=== PATIENT | male | born 1965 | race Caucasian/White ===

== ENCOUNTER 2024-05-20 14:00 | Emergency (ER) | payer MEDICARE, SELFPAY ==
[2024-05-20 14:06] VITALS: BP 178/95; PULSE 67; TEMP 37; O2SAT 94; BMI 22.0
--- NOTE | 2024-05-20 14:20 | PC.NURSE ---
chronic back pain, reports needing surgery but has not had anything done. No DR at this time as pt is new to the area. Pt ambulated to ER rm 8 with no problem and PA at bedside for assessment.
--- NOTE | 2024-05-20 14:27 | ED.BACK1 ---
HPI HPI - Back Pain/Injury General Chief Complaint: Back Pain/Injury Stated Complaint: BACK SPAZMS Time Seen by Provider: 05/20/24 14:13 Source: patient and family () Mode of arrival: walk-in Limitations: no limitations History of Present Illness HPI Narrative: 58-year-old male presents to the emergency department with with complaint of lower back pain over the past 2-1/2 days. 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 Notes numbness going down his left leg, paresthesias in his right leg. States his right leg, do not work, secondary to the [place] Mccollum? disease. He has numbness and tingling in his arms as well from the [place] Mccollum?. He has appointment for follow-up, but pain intolerable and came in for further evaluation. Patient recently moved here from [place]. Denies any new or concerning symptoms, just his chronic pain being not controlled. Denies any loss of bowel or bladder control, fever, chills, IV drug use, saddle anesthesias. Quality:?as above Severity:?severe Timing:?as above, contant Context: Normal setting and activity? Modifying factors:?worse with palpation, movement Associated symptoms: as above Related Data Previous Rx's ?Medication ?Instructions ?Recorded hydrocodone 5 mg-acetaminophen 325 1 tab PO Q8H PRN pain 3 days #8 05/20/24 mg tablet tabs prednisone 20 mg tablet 40 mg (2 x 20 mg) PO DAILY 5 days 05/20/24 #10 tabs tizanidine 2 mg capsule 2 mg PO Q8H PRN muscle spasticity 05/20/24 #14 caps Allergies Allergy/AdvReac Type Severity Reaction Status Date / Time No Known Drug Allergies Allergy Verified 05/20/24 14:10 Opioid HPI Opioid Management Most Recent Opioid Data: No Data to Display Review of Systems ROS Narrative CONST: Denies fever, chills GI: Denies abd pain, nausea, loss of bowel control : Denies loss of bladder control, hematuria MS: + back pain, myalgias.? Denies arthralgia SKIN: Denies color change, swelling NEURO: + numbness, paresthesias, weakness. 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 No diaphoresis.?? HENT: normocephalic, atraumatic, CV: 2+ palpable DP pulses bilat GI: soft, nontender : no CVA tenderness MS: + spinous process and paraspinal muscle tenderness diffusely to the lower L-S region.? + tenderness over the SI joint.? There is no discoloration, edema, crepitus, instability, step off.? + weakness and sensory deficit noted to the RLE which is chronic and unchanged per patient. DF, PF, hallux DF strong 5/5 on the left. NEURO: sensory deficit, chronic noted to the right leg SKIN: no rash, erythema, warm, dry PSYCHIATRIC: normal mood, affect Constitutional Vital Signs, click to edit/add: Last Vital Signs Temp 98.6 F 05/20/24 14:06 Pulse 67 05/20/24 14:06 Resp 18 05/20/24 14:06 BP 178/95 H 05/20/24 14:06 Pulse Ox 94 L 05/20/24 14:06 O2 Del Method Room Air 05/20/24 14:06 Course Reevaluation(s) Reevaluation #1: On reevaluation, patient reports she is still having some pain, but it is tolerable at this point and he is comfortable with being discharged to home. Discussed with patient and results, plan, and disposition. Patient and are agreeable. Time: 15:39 Vital Signs Vital signs: Vital Signs Temperature 98.6 F 05/20/24 14:06 Pulse Rate 67 05/20/24 14:06 Respiratory Rate 18 05/20/24 14:06 Blood Pressure 178/95 H 05/20/24 14:06 Pulse Oximetry 94 L 05/20/24 14:06 Oxygen Delivery Method Room Air 05/20/24 14:06 Temperature 98.6 F 05/20/24 14:06 Pulse Rate 67 05/20/24 14:06 Respiratory Rate 18 05/20/24 14:06 Blood Pressure 178/95 H 05/20/24 14:06 Pulse Oximetry 94 L 05/20/24 14:06 Oxygen Delivery Method Room Air 05/20/24 14:06 MDM - Back Pain/Injury MDM Narrative Medical decision making narrative: This is a pleasant 58-year-old male who presents to the emergency department for evaluation of low back pain, numbness in his left leg. Has chronic numbness in both of his arms and his right leg secondary to [place] Mccollum? syndrome. States the pain he is experiences the same location and characteristic and the numbness is similar to chronic, but today reports that the symptoms are not controlled with home remedies. Denies any red flags, fevers, chills, loss of bowel or bladder control, saddle anesthesias, history of IV drug use. On arrival, afebrile, vital signs are stable Exam, nontoxic, uncomfortable-appearing patient in no distress. He has diffuse tenderness across the lower back, spinous process into the buttocks. Left dorsiflexion, plantarflexion, hallux dorsiflexion 5/5 strength. He has weakness in his right leg secondary to the given bradycardia which he says is not worse. 2+ palpable dorsalis pedal pulses are intact. There are sensory deficits noted to both legs, also chronic. Patient's pain was treated with IM Kenalog, morphine, oral Motrin, and tizanidine with overall improvement Favor low back pain, radiculopathy, exacerbation Cauda equina less likely based on history and physical exam. No loss of bowel or bladder control, no new weakness, saddle anesthesias Epidural abscess less likely based on history and physical. No loss of bowel or bladder control, fevers, history of IV drug use. Fracture less likely based on history and has no blunt trauma reported. History and Record Review Discussion with independent historian: OARRS reviewed from [place] Diagnostic testing considered but not performed: X-rays. No report of blunt trauma. Re-Evaluation See ED course Disposition ? The patient was discharged. Prescriptions sent to pharmacy: [facility], prednisone, tizanidine Plan: Patient will be discharged to home.? Condition at time of disposition: stable, improved.? Advised to follow up with referral provider, name and number placed on discharge paperwork. Advised to return for any worsening and/or development of new, concerning signs or symptoms PLEASE NOTE: Portions of the medical record may have been produced using electronic sign builder and may contain errors with respect to translation of words which may not have been identified prior to finalization of the chart. Medical Records Attestation: I reviewed the patient's medical records. Discharge Plan Discharge Chief Complaint: Back Pain/Injury Clinical Impression: Lumbar radiculopathy, History of Guillain-[place] syndrome Low back pain Qualifiers: Chronicity: acute Back pain laterality: bilateral Sciatica presence: with sciatica Sciatica laterality: sciatica laterality unspecified Qualified Code(s): M54.40 - Lumbago with sciatica, unspecified side Patient Disposition: Home, Self-Care Time of Disposition Decision: 15:34 Condition: Good Mode of Transportation: Private Vehicle Prescriptions / Home Meds: New hydrocodone-acetaminophen 5-325 mg tablet 1 tab PO Q8H PRN (Reason: pain) 3 Days Qty: 8 0RF tizanidine 2 mg capsule 2 mg PO Q8H PRN (Reason: muscle spasticity) Qty: 14 0RF prednisone 20 mg tablet 40 mg PO DAILY 5 Days Qty: 10 0RF Print Language: Luxembourgish Instructions: Acute Low Back Pain (ED), Lumbar Radiculopathy (ED) Referrals: Walter Perez DO [Physician] - 1 week (3 [facility] 350 ) Helen Aquino MD [Physician] - 1 week
[2024-05-20] MEDS: TIZANIDINE HCL 4 MG TABLET 2 MG PO (14:37)
[2024-05-20] MEDS: MORPHINE SULFATE 4 MG/ML VIAL IM (14:38)
[2024-05-20] MEDS: IBUPROFEN 600 MG TABLET PO (14:38)
[2024-05-20] MEDS: TRIAMCINOLONE ACETONIDE 40 MG/ML VIAL IM (14:38)
== END 2024-05-20 15:45 | disposition home or self-care (01) ==
PROVIDERS: Emergency Provider Emergency Medicine; PCP Nurse Practitioner
DX: M54.16 Radiculopathy, lumbar region (principal); G61.0 Guillain-Barre syndrome
CPT/HCPCS: 96372; 99284; J2270; J3301

== ENCOUNTER 2024-06-15 13:56 | Outpatient (OUT) | payer MEDICARE, SELFPAY ==
--- OUTSIDE RECORDS SUMMARY | 2024-06-15 14:23 | XMS_ITS | CCD ---
Author Organization [facility] Inform [facility] Care Team Providers Care Geomagnetician Name Role Phone Julia RAMIREZ, Marium Unavailable Joao Law MD Primary Care Provider [phone] Teo RAMIREZ, Niurka Unavailable NIURKA BRUCE Attending Unavailable MARIUM DUMONT Attending Unavailabl e Medications Current Medications Medication Drug Class(es) Dates Sig (Normalized) Sig (Original) acetaminophen 325 mg / HYDROcodone bitartrate 5 mg oral tablet (4 sources) Opioid Agonist Start: 01-29-2024 End: 02-28-2024 take 1 tablet by mouth once HYDROcodone-acetami nophen (Wolfforth) 5-325 MG tablet Indications: Retrolisthesis of vertebrae , Bulging lumbar disc Take 1 tablet by mouth every 12 (twelve) hours if needed for severe pain 60 tablet 01/29/2024 02/28/2024 Active amLODIPine 5 mg oral tablet (4 sources) Dihydropyridine Calcium Channel Maricel take 1 tablet by mouth once daily amLODIPine (Norvasc) 5 MG tablet Take 5 mg by mouth Daily Active ARIPiprazole 20 mg oral tablet (3 sources) Atypical Antipsychotic Start: 02-18-2024 End: 02-18-2024 take 1 tablet by mouth once daily ARIPiprazole (Abilify) 20 MG tablet Indications: Recurrent major depressive disorder, in partial remission (HCC) (CMS/HCC) Take 1 tablet (20 mg) by mouth Daily 30 tablet 1 02/18/2024 Active folic acid 1 mg oral tablet (3 sources) Start: 02-18-2024 End: 02-18-2024 take 1 tablet by mouth once daily folic acid (Folvite) 1 MG tablet Indications: Recurrent major depressive disorder, in partial remission (HCC) (CMS/HCC) Take 1 tablet (1 mg) by mouth Daily 30 tablet 1 02/18/2024 Active lisinopril 10 mg oral tablet (3 sources) Angiotensin Converting Enzyme Inhibitor Start: 02-18-2024 End: 02-18-2024 take 1 tablet by mouth once daily lisinopril 10 MG tablet Indications: Primary hypertension (CMS/HCC) Take 1 tablet (10 mg) by mouth Daily 30 tablet 1 02/18/2024 Active pantoprazole 40 mg delayed release oral tablet (3 sources) Proton Pump Inhibitor Start: 02-18-2024 End: 02-18-2024 take 1 tablet by mouth before mealtime pantoprazole (ProtoNix) 40 MG EC tablet Indications: Heartburn Take 1 tablet (40 mg) by mouth in the morning. Take before meals. Do not crush, chew, or split.. 30 tablet 1 02/18/2024 Active rosuvastatin calcium 10 mg oral tablet (3 sources) HMG-CoA Reductase Inhibitor Start: 02-18-2024 End: 02-18-2024 take 1 tablet by mouth once daily rosuvastatin (Crestor) 10 MG tablet Indications: Other hyperlipidemia (CMS/HCC) Take 1 tablet (10 mg) by mouth Daily 30 tablet 1 02/18/2024 Active traZODone hydrochloride 100 mg oral tablet (3 sources) Serotonin Reuptake Inhibitor Start: 02-18-2024 End: 02-18-2024 take 1 tablet by mouth at bedtime traZODone (Desyrel) 100 MG tablet Indications: Anxiety Take 1 tablet (100 mg) by mouth at bedtime 30 tablet 1 02/18/2024 Active 24 hr divalproex sodium 500 mg extended release oral tablet (3 sources) Mood Stabilizer, Anti-epileptic Agent Start: 02-19-2024 take 1 tablet by mouth once daily divalproex (Depakote ER) 500 MG 24 hr tablet Indications: Anxiety Take 1 tablet (500 mg) by mouth Daily Do not crush, chew, or split. 90 tablet 02/19/2024 Active End: 02-19-2024 take 1 tablet by mouth once daily divalproex (Depakote ER) 500 MG 24 hr tablet Take 500 mg by mouth Daily Do not crush, chew, or split. 02/19/2024 Discontinued (Reorder) Problems Problem Classification Problem Date Documented Da te Episodic/Chronic Acute myocardial infarction (4 sources) Myocardial infarction; Translations: [Acute myocardial infarction, unspecified] 01-28-2024 Chronic Anxiety disorders (6 sources) Anxiety; Translations: [Anxiety disorder, unspecified] 01-28-2024 Chronic Coronary atherosclerosis and other heart disease (4 sources) History of myocardial infarction; Translations: [Old myocardial infarction] Onset: 01-28-2024 01-28-2024 Chronic Disorders of lipid metabolism (5 sources) Hyperlipidemia; Translations: [Other hyperlipidemia] Onset: 01-28-2024 01-28-2024 Chronic Essential hypertension (5 sources) Hypertensive disorder; Translations: [Essential (primary) hypertension] 01-28-2024 Chronic Genitourinary symptoms and ill-defined conditions (8 sources) Dysuria; Translations: [Dysuria] Onset: 01-29-2024 01-29-2024 Episodic Mood disorders (5 sources) Depressive disorder; Translations: [Depression] 01-28-2024 Chronic Osteoarthritis (4 sources) Arthritis; Translations: [Unspecified osteoarthritis, unspecified site] 01-28-2024 Chronic Other acquired deformities (7 sources) Retrolisthesis; Translations: [Spondylolisthesis, site unspecified] Onset: 01-29-2024 01-29-2024 Episodic Other gastrointestinal disorders (1 source) Heartburn; Translations: [Heartburn] 02-18-2024 Episodic Other nervous system disorders (4 sources) 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; 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] Onset: 01-28-2024 01-28-2024 Chronic Other nervous system disorders (4 sources) Neuromyopathy; Translations: [Myoneural disorder, unspecified] 01-28-2024 Episodic Other screening for suspected conditions (not mental disorders or infectious disease) (6 sources) Patient encounter status; Translations: [Encounter for screening for malignant neoplasm of colon] Onset: 01-28-2024 01-28-2024 Episodic Rheumatoid arthritis and related disease (2 sources) Retrolisthesis 01-29-2024 Chronic Spondylosis; intervertebral disc disorders; other back problems (9 sources) Disorder of lumbar disc; Translations: [Bulging lumbar disc] Onset: 01-29-2024 01-29-2024 Chronic Unclassified (2 sources) Patient encounter status 01-29-2024 Results Test Name Value Interpretation Reference Range Facil ity Provider Letteron 04-14-2024 Provider Letter Provider Letter April 14, 2024 ROXY YAN [address] [place] [address] : 1965 Dear Roxy Yan, We have been trying to reach you with no success. It is important that you return our call regarding a referral your Primary Care Doctor sent to [facility], upon receiving this letter. Also, at the time of your call, please provide us with your current information. Thank you for your prompt attention to this matter. Sincerely, [facility] [address] [facility] Vital Signs Date Time Vital Sign Value Performing Clinician Patti garcia 01-28-2024 11:18-0500 Body height 162.6 cm Marium Dumont [employer] Work Phone: [facility] 01-28-2024 11:18-0500 Body mass index (BMI) [Ratio] 21.83 kg/m2 Marium Dumont [employer] Work Phone: [facility] 01-28-2024 11:18-0500 Body temperature 97.7 [degF] Marium Dumont [employer] Work Phone: [facility] 01-28-2024 11:18-0500 Body weight 57.7 kg Marium Dumont [employer] Work Phone: [facility] 01-28-2024 11:18-0500 Diastolic blood pressure 78 mm[Hg] Marium Dumont [employer] Work Phone: [facility] 01-28-2024 11:18-0500 Heart rate 83 /min Marium Dumont [employer] Work Phone: [facility] 01-28-2024 11:18-0500 Respiratory rate 16 /min Marium Dumont [employer] Work Phone: [facility] 01-28-2024 11:18-0500 SaO2% (BldA) [Mass fraction] 97 % Marium Dumont [employer] Work Phone: [facility] 01-28-2024 11:18-0500 Systolic blood pressure 140 mm[Hg] Marium Nicholaszpatrick [employer]UM [employer]ARIAN Work Phone: [facility] Healthcare Encounters Encounter Date Encounter Type Care Provider Facility Start: 06-02-2024 End: 06-02-2024 ambulatory NIURKA BRUCE Not Available Start: 02-19-2024 End: 02-19-2024 Refill Crissy Slaughter MA [facility] Comment on above: Anxiety (Primary Dx) Start: 02-18-2024 End: 02-18-2024 Refill Crissy Slaughter MA [facility] Comment on above: Recurrent major depr essive disorder, in partial remission (HCC) (CMS/HCC) (Primary Dx); Retrolisthesis of vertebrae; Bulging lumbar disc; Anxiety; Other hyperlipidemia (CMS/HCC); Primary hypertension (CMS/HCC); Heartburn Start: 01-30-2024 ambulatory Facility:[facility] Start: 01-28-2024 End: 01-28-2024 Bamboo flowsheet Marium Julia [employer]IAN Work Phone: [facility] Start: 01-28-2024 End: 01-28-2024 Bamboo flowsheet Marium Dumont [employer]IAN Work Phone: [facility] Start: 01-28-2024 End: 01-28-2024 Initial preventive medicine new patient 40-64yrs Marium Dumont [employer]IAN Work Phone: [facility] Comment on above: Wellness examination (Primary Dx); Screening for malignant neoplasm of colon; Retrolisthesis of vertebrae; Bulging lumbar disc; Dysuria Start: 01-28-2024 End: 01-28-2024 Patient encounter status Marium Julia [employer]IAN Work Phone: [facility] Start: 01-28-2024 End: 01-28-2024 ambulatory MARIMU DUMONT Not Available Plan of Treatment Date Care Activity Detail Author Start: 01-27-2025 Medicare Annual Well ness (AWV) Medicare Annual Wellness (AWV) [facility] Start: 02-25-2024 End: 02-25-2024 Patient encounter procedure 02/25/2024 10:30 AM EST Office Visit [facility] [address] [place] [address] Marium Dumont, [employer]IAN [address] [place] [address] [facility] Start: 01-28-2024 End: 01-27-2025 CBC W Auto Differential panel - Blood CBC and differential Lab Routine Wellness examination Expected: 01/28/2024 (Approximate), Expires: 01/27/2025 [facility] Comment on above: Expected: 01/28/2024 (Approximate), Expires: 01/27/2025 Start: 01-28-2024 End: 01-27-2025 Comprehensive metabolic 2000 panel - Serum or Plasma Comprehensive metabolic panel Lab Routine Wellness examination Expected: 01/28/2024 (Approximate), Expires: 01/27/2025 [facility] Comment on above: Expected: 01/28/2024 (Approximate), Expires: 01/27/2025 Start: 01-28-2024 End: 01-27-2025 Hemoglobin A1c/Hemoglobin.total in Blood Hemoglobin A1c Lab Routine Wellness examination Expected: 01/28/2024 (Approximate), Expires: 01/27/2025 [facility] Comment on above: Expected: 01/28/2024 (Approximate), Expires: 01/27/2025 Start: 01-28-2024 End: 01-27-2025 Lipid 1996 panel - Serum or Plasma Lipid panel Lab Routine Wellness examination Expected: 01/28/2024 (Approximate), Expires: 01/27/2025 [facility] Comment on above: Expected: 01/28/2024 (Approximate), Expires: 01/27/2025 Start: 01-28-2024 End: 01-27-2025 TSH W/REFLEX TO FT4 TSH W/REFLEX TO FT4 Lab Routine Wellness examination Expected: 01/28/2024 (Approximate), Expires: 01/27/2025 [facility] Work Phone: Comment on above: Expected: 01/28/2024 (Approximate), Expires: 01/27/2025 Start: 01-28-2024 End: 01-28-2024 Patient encounter procedure 01/28/2024 11:30 AM EST Office Visit [facility] [address] [place] [address] Marium Dumont NP [address] [facility] [place] [address] Arrived [facility] Comment on above: Arrived Start: 11-10-2023 Influenza vaccination Influenza Vacc ine (#1) [facility] Start: 1965 Screening for malign ant neoplasm of colon [facility] Payers Date Payer Category Payer Medicare (Managed Care) [employer] [id number] 2023 Private Health Insurance [facility] [id number] 2023 Unknown [id number] 1965 Unknown [id number] 1965 Unknown 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 No [facility] Are you now , , , , never or living with a partner? Living with partner [facility] How often to you hav e a drink containing alcohol? 2-4 times a month [facility] How many standard dr inks containing alcohol do you have on a typical day? 3 or 4 [facility] How often do you hav e 6 or more drinks on 1 occasion? Less than monthly [facility] How hard is it for y ou to pay for the very basics like food, housing, medical care, and heating Somewhat hard [facility] Do you feel stress - tense, restless, nervous, or anxious, or unable to sleep at night because your mind is troubled all the time - these days [OSQ] Very much [facility] (I/We) worried whemoy er (my/our) food would run out before (I/we) got money to buy more. Sometimes true [facility] In the past 12 month s, was there a time when you were not able to pay the mortgage or rent on time? Yes [facility] Start: 1965 Sex assigned at Not on file [facility] Start: 01-28-2024 Tobacco smoking status NHIS Smokes t obacco daily [facility] History of tobacco use Cigarette Smoker [facility] Start: 01-28-2024 Tobacco use and exposure Smoke less tobacco non-user [facility] Start: 01-28-2024 Alcoholic beverage intake Curr ent drinker of alcohol (finding) [facility] Start: 01-28-2024 Tobacco Comment Started smokin g when i was 17 [facility] Note 02-19-2024 Telephone Encounter - Crissy Slaughter MA - 02/19/2024 10:00 AM EST Note Date & Type Note Facility 02-19-2024 Miscellaneous Notes Formattin g of this note might be different from the original. He is taking it for depression. documented in this encounter [facility] Telephone encounter Note 02-19-2024 Telephone Encounter - Crissy Slaughter MA - 02/19/2024 10:00 AM EST Note Date & Type Note Facility 02-19-2024 Telephone encount er Note He is taking it for depression. [facility] Telephone encounter Note 02-18-2024 Telephone Encounter - Crissy Slaughter MA - 02/18/2024 11:56 AM EST Note Date & Type Note Facility 02-18-2024 Telephone encount er Note 01/28/2024 02/25/2024 [facility] Note 02-18-2024 Telephone Encounter - Crissy Slaughter MA - 02/18/2024 11:56 AM EST Note Date & Type Note Facility 02-18-2024 Miscellaneous Notes Formattin g of this note might be different from the original. 01/28/2024 02/25/2024 documented in this encounter [facility] History of Present illness Narrative 01-29-2024 Marium Dumont, JAMES - 01/29/2024 5:34 PM Santy Dumont, JAMES - 01/29/2024 5:34 PM Santy Dumont, JAMES - 01/29/2024 5:34 PM Santy Dumont, JAMES - 01/28/2024 11:30 AM EST Note Date & Type Note Facility 01-29-2024 History of Presen t illness Narrative Associated Problem(s): Wellness examination I have reviewed Ht/Wt/BMI, I have reviewed recommended vaccines for patient's age, as well as all recommended screenings I have reviewed available care everywhere notes as well. I have recommended eating a balanced diet, as well as activity as chronic conditions allow It is recommended that the patient have a yearly eye exam, as well as twice a year dental exams Fu in this office for wellness on a yearly basis Diet: Eat three meals per day. Breakfast, lunch, and dinner. Avoid snacking. Avoid eating after 5/6 pm. Daily protein GOAL 35% of your intake; 30g per meal. Daily calorie GOAL 1,800-2,000 per day. Consider tracking your food intake on MyFtinessPal or LoseIt Water: Increase water intake; GOAL 64-80oz of water per day. Exercise: Increase activity. GOAL 30 minutes, 5 days per week. START SLOW. Start with 5 minutes, 5 days per week. Then increase to 10 days, 5 days per week. Continue to increase until you reach the goal. Increase steps; GOAL 10,000 steps per day. Be sure to get adequate sleep; GOAL 6-8 hours of sleep per night. Associated Problem(s): Dysuria Difficulty with urination, difficulty with urinary flow X1 month Denies blood in urine Admits foul odor. UA in office negative. Refer urology Associated Problem(s): Bulging lumbar disc Has MRI report from [place], has retrolithesis on L5 Dessication at L2-L3 Mild disc buldge @ L4-L5 Was referred to neurosurgeon in [place], but moved prior to appointment. Would like referral to neurosurgeon here. Pt has RX from provider in [place] for hydrocodone-acetaminophen 5-325mg one tablet PO Q12H PRN severe Pain. RX was unable to be filled in [place]. Will fill for ONE month only. Referral sent to neurosurgery. Images from the original note were not included. Subjective Patient ID: Roxy Yan Jr. is a 58 y.o. male who presents for Establish Care. Back Pain This is a chronic problem. The current episode started more than 1 year ago. The problem occurs constantly. The problem has been rapidly worsening since onset. The pain is present in the gluteal. The quality of the pain is described as aching, burning, cramping, shooting and stabbing. The pain radiates to the left foot, left knee, left thigh, right foot, right knee and right thigh. The pain is at a severity of 10/10. The pain is The same all the time. The symptoms are aggravated by bending, coughing, position, lying down, sitting, standing and twisting. Stiffness is present All day. Associated symptoms include dysuria, leg pain, numbness, paresis, paresthesias and tingling. Pertinent negatives include no abdominal pain, chest pain, fever, headaches or weakness. Risk factors include recent trauma. Here today to establish care, moved here from [place]. Does not know dosing of any ,medications. Advised pt to call office with medication dosage and instructions so they can be entered correctly. Wellness labs done in November 2023 in [place]. Was seeing Quality Assurance Director in [place] as well- will request records Has MRI report from [place], has retrolithesis on L5 Dessication at L2-L3 Mild disc buldge @ L4-L5 Was referred to neurosurgeon in [place], but moved prior to appointment. Would like referral to neurosurgeon here. Pt has RX from provider in [place] for hydrocodone-acetaminophen 5-325mg one tablet PO Q12H PRN severe Pain. RX was unable to be filled in [place]. Will fill for ONE month only. Referral sent to neurosurgery. Difficulty with urination, difficulty with urinary flow X1 month Denies blood in urine Admits foul odor. UA in office negative. Refer urology Current 2 ppd smoker since age 17. [facility] Reports he has a 20 pound weight loss since November. Review of Systems Constitutional: Negative for activity change, appetite change, chills, diaphoresis, fatigue, fever and unexpected weight change. HENT: Negative for congestion, ear pain, rhinorrhea, sinus pressure, sinus pain, sneezing, sore throat, trouble swallowing and voice change. Eyes: Negative for visual disturbance. Respiratory: Negative for cough, chest tightness, shortness of breath and wheezing. Cardiovascular: Negative for chest pain, palpitations and leg swelling. Gastrointestinal: Negative for abdominal distention, abdominal pain, blood in stool, constipation, diarrhea and vomiting. Genitourinary: Positive for dysuria. Negative for decreased urine volume, flank pain, frequency, hematuria and urgency. Musculoskeletal: Positive for back pain. Negative for arthralgias, gait problem, joint swelling and myalgias. Skin: Negative for rash. Neurological: Positive for tingling, numbness and paresthesias. Negative for dizziness, tremors, syncope, weakness, light-headedness and headaches. Psychiatric/Behavioral: Positive for sleep disturbance. Negative for decreased concentration and suicidal ideas. The patient is nervous/anxious. Hematological: Does not bruise/bleed easily. Endocrine: Negative for cold intolerance, heat intolerance, polydipsia, polyphagia and polyuria. Objective Physical Exam Vitals reviewed. Constitutional: Appearance: Normal appearance. HENT: Head: Normocephalic and atraumatic. Right Ear: Tympanic membrane normal. Left Ear: Tympanic membrane normal. Nose: Nose normal. Mouth/Throat: Mouth: Mucous membranes are moist. Pharynx: Oropharynx is clear. Eyes: Pupils: Pupils are equal, round, and reactive to light. Cardiovascular: Rate and Rhythm: Normal rate and regular rhythm. Pulses: Normal pulses. Heart sounds: Normal heart sounds. Pulmonary: Effort: Pulmonary effort is normal. Breath sounds: Normal breath sounds. Abdominal: General: Abdomen is flat. Bowel sounds are normal. Palpations: Abdomen is soft. Musculoskeletal: General: Normal range of motion. Cervical back: Normal range of motion. Skin: General: Skin is warm and dry. Capillary Refill: Capillary refill takes less than 2 seconds. Neurological: General: No focal deficit present. Mental Status: He is alert and oriented to person, place, and time. Motor: Weakness present. Gait: Gait abnormal. Psychiatric: Mood and Affect: Mood normal. Behavior: Behavior normal. Assessment/Plan Problem List Items Addressed This Visit Screening for malignant neoplasm of colon Relevant Orders Ambulatory referral to Gastroenterology Wellness examination - Primary I have reviewed Ht/Wt/BMI, I have reviewed recommended vaccines for patient's age, as well as all recommended screenings I have reviewed available care everywhere notes as well. I have recommended eating a balanced diet, as well as activity as chronic conditions allow It is recommended that the patient have a yearly eye exam, as well as twice a year dental exams Fu in this office for wellness on a yearly basis Diet: Eat three meals per day. Breakfast, lunch, and dinner. Avoid snacking. Avoid eating after 5/6 pm. Daily protein GOAL 35% of your intake; 30g per meal. Daily calorie GOAL 1,800-2,000 per day. Consider tracking your food intake on MyFtinessPal or LoseIt Water: Increase water intake; GOAL 64-80oz of water per day. Exercise: Increase activity. GOAL 30 minutes, 5 days per week. START SLOW. Start with 5 minutes, 5 days per week. Then increase to 10 days, 5 days per week. Continue to increase until you reach the goal. Increase steps; GOAL 10,000 steps per day. Be sure to get adequate sleep; GOAL 6-8 hours of sleep per night. Relevant Orders TSH W/REFLEX TO FT4 Lipid panel Hemoglobin A1c Comprehensive metabolic panel CBC and differential Retrolisthesis of vertebrae Relevant Medications HYDROcodone-acetaminophen (Wolff[place]) 5-325 MG tablet Other Relevant Orders Ambulatory referral to Neurosurgery Bulging lumbar disc Has MRI report from [place], has retrolithesis on L5 Dessication at L2-L3 Mild disc buldge @ L4-L5 Was referred to neurosurgeon in [place], but moved prior to appointment. Would like referral to neurosurgeon here. Pt has RX from provider in [place] for hydrocodone-acetaminophen 5-325mg one tablet PO Q12H PRN severe Pain. RX was unable to be filled in [place]. Will fill for ONE month only. Referral sent to neurosurgery. Relevant Medications HYDROcodone-acetaminophen (Wolfforth) 5-325 MG tablet Other Relevant Orders Ambulatory referral to Neurosurgery Dysuria Difficulty with urination, difficulty with urinary flow X1 month Denies blood in urine Admits foul odor. UA in office negative. Refer urology Relevant Orders Ambulatory referral to Urology documented in this encounter [facility] Instructions 01-28-2024 Patient Instructions Note Date & Type Note Facility 01-28-2024 Instructions Marium Dumont NP - 01/28/2024 11:30 AM EST FASTING labs ordered. Nothing to eat or drink for 12 hours prior to blood draw. Water and black coffee ok. Referral sent to Dr. [facility] they will call you. If you don't hear from them in 2 weeks, call my office! Please call office with current medications, dosing, and frequency. documented in this encounter [facility] Evaluation note Note Date & Type Note Facility Evaluation note Diagnosis Wellness examination- Primary Screening for malignant neoplasm of colon Retrolisthesis of vertebrae Bulging lumbar disc Dysuria documented in this encounter [facility] Evaluation note Note Date & Type Note Facility Evaluation note Diagnosis Wellness examination- Primary Screening for malignant neoplasm of colon Retrolisthesis of vertebrae Bulging lumbar disc Dysuria Recurrent major depressive disorder, in partial remission (HCC) ([facility])- Primary Retrolisthesis of vertebrae Bulging lumbar disc Anxiety Anxiety state, unspecified Other hyperlipidemia ([facility]CC) Primary hypertension ([facility]) Unspecified essential hypertension Heartburn documented in this encounter [facility] Evaluation note Note Date & Type Note Facility Evaluation note Diagnosis Wellness examination- Primary Screening for malignant neoplasm of colon Retrolisthesis of vertebrae Bulging lumbar disc Dysuria Anxiety- Primary Anxiety state, unspecified documented in this encounter [facility] Summary Purpose Family History No Family History Records FoundNo Family History Records Found Advance Directives No Advanced Directives Records FoundNo Advanced Directives Records Found Additional Source Comments Care Teams (unrecognized sec tion and content) Geomagnetician Relationship Specialty Start Date End Date Joao Law MD [address] [place] [phone] PCP - General Family Medicine 01/09/24 Niurka Bruce NP [address] [place] [address] PCP - [facility] 12/10/23 01/09/88 Marium Dumont NP [address] [place] [address] Nurse Practitioner Family Medicine 12/11/23 Geomagnetician Relationship Specialty Start Date End Date Joao Law MD [address] [place] [phone] PCP - General Family Medicine 01/09/24 Niurka Bruce NP [address] [place] [phone] [facility] 12/10/23 01/09/88 Marimu Dumont NP [address] [place] [address] Nurse Practitioner Family Medicine 12/11/23 Geomagnetician Relationship Specialty Start Date End Date Joao Law MD [address] [place] [phone] PCP - General Family Medicine 01/09/24 Niurka Bruce NP [address] [place] [address] PCP - [facility] 12/10/23 01/09/88 Marium Dumont NP [address] [place] [address] Nurse Practitioner Family Medicine 12/11/23 Geomagnetician Relationship Specialty Start Date End Date Joao Law MD [address] [place] [address] PCP - General Family Medicine 01/09/24 Niurka Bruce NP [address] [place] [address] [facility] 12/10/23 01/09/88 Marium Dumont NP [address] [place] [address] Nurse Practitioner Family Medicine 12/11/23 Reason for Visit (unrecogniz ed section and content) Reason Comments Establish Care Reason Onset Date Comments Med Refill 02/18/2024 Reason Onset Date Comments Med Refill 02/19/2024 (unrecognized sect ion and content) No Status Records FoundNo Status Records Found INFORMATION SOURCE (unrecogn ized section and content) DATE CREATED AUTHOR 04/16/2024 Jose Cornell [facility] DATE CREATED AUTHOR AUTHOR'S ORGANIZ ATION 06/03/2024 [facility] FOR RECORDS PERTAINING TO PATIENTS WHO ARE OR HAVE BEEN ENROLLED IN A CHEMICAL DEPENDENCY/SUBSTANCEABUSE PROGRAM, SOME INFORMATION MAY BE OMITTED. This clinical summary was aggregated from multiple sources. Caution should be exercised in using it in the provision of clinical care. This summary normalizes information from multiple sources, and as a consequence, information in this document may materially change the coding, format and clinical context of patient data. In addition, data may be omitted in some cases. CLINICAL DECISIONS SHOULD BE BASED ON THE PRIMARY CLINICAL RECORDS. [employer] [facility]. provides no warranty or guarantee of the accuracy or completeness of information in this document.
--- NOTE | 2024-06-15 15:23 | PM.CN ---
Consult Note: HPI Data of Consult Patient: new to practice Consult date: 06/15/24 Requesting Physician: Vinod Gray MD Primary Care Provider: Niurka Bruce NP Consult Narrative Reason for consult: lumbar stenosis with neurogenic claudication Narrative: 58yom who presents for evaluation. longstanding history of low back pain with radiation into left lower extremity. also has history of guillain barre. lumbar imaging reviewed, significant for disc herniation with resultant stenosis at l4-5, l5-s1. has engaged in a series of provider directed home exercises >6 weeks, without benefit. uses norco, which helps some. denies adverse med side effects. 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) Chronic back pain ?M54.9 - Dorsalgia, unspecified (ICD-10) ?G89.29 - Other chronic pain (ICD-10) Social History Little interest or pleasure in doing things: not at all Feeling down, depressed, or hopeless: not at all Meds Home Medications and Allergies Home Medications ?Medication ?Instructions ?Recorded ?Confirmed ?Type hydrocodone 5 mg-acetaminophen 325 1 tab PO Q8H PRN pain 3 days #8 05/20/24 Rx mg tablet tabs prednisone 20 mg tablet 40 mg (2 x 20 mg) PO DAILY 5 days 05/20/24 Rx #10 tabs tizanidine 2 mg capsule 2 mg PO Q8H PRN muscle spasticity 05/20/24 Rx #14 caps gabapentin 300 mg capsule 300 mg PO TID #90 caps 06/15/24 Rx Allergies Allergy/AdvReac Type Severity Reaction Status Date / Time No Known Drug Allergies Allergy Verified 05/20/24 14:10 Exam Narrative Exam Narrative: Psych-alert and oriented x 3. Attentive and appropriate, constitutionally normal, displays normal mood and affect per situation. There are no obvious deficits in memory, reasoning, or intellect.? Skin-no obvious rashes, bruising, erythema noted to the patient's area of pain.? Extremities- extremities are warm with minimal edema and palpable pulses. Lumbar-tenderness to palpation noted in the lumbar spine and paraspinal musculature. Pain is elicited with flexion, extension, and lateral rotation of the lumbar spine. Range of motion is diminished with these motions. Facet loading maneuvers are positive.? Strength-noted to be unremarkable with the exception of decreased strength rated at 4 out of 5 in left quadriceps femoris, anterior tibialis. Sensory-no notable sensory deficits in the bilateral lower extremities to touch or pinprick in all dermatomal distributions with the exception to decreased sensation to the left L4, 5 dermatomal distribution Coordination remains intact.? Gait remains non-antalgic. Assessment and Plan Assessment and Plan (1) Lumbar stenosis with neurogenic claudication: (2) Lumbar radiculopathy: Plan 58yom who presents for evaluation. failed conservative measures, as noted. imaging reviewed, as noted. given symptoms and imaging, prudent to attempt left l4-5, l5-s1 tfesi under fluoroscopic guidance. he is in agreement. meds reviewed, ok to refill his norco and trial gabapentin 300mg tid. follow up after procedure.
== END 2024-06-15 13:57 | disposition home or self-care (01) ==
PROVIDERS: PCP Nurse Practitioner; Visit Provider Anesthesiology
DX: M48.062 Spinal stenosis, lumbar region with neurogenic claudication (principal); M54.16 Radiculopathy, lumbar region
CPT/HCPCS: G0463

== ENCOUNTER 2024-07-27 08:22 | Day surgery (SDC) | payer MEDICARE, SELFPAY ==
[2024-07-27 08:58] VITALS: BP 155/100; PULSE 79; TEMP 36.1; O2SAT 98
[2024-07-27 09:43] VITALS: BP 178/88; BP 179/90; PULSE 70; PULSE 74; O2SAT 97; O2SAT 98
[2024-07-27] MEDS: LIDOCAINE HCL 2% 400 MG/20 ML MDV INJ (09:47)
[2024-07-27] MEDS: IOHEXOL 240 MG/ML - 10 ML VIAL 24 MG INJ (09:47)
[2024-07-27] MEDS: BUPIVACAINE HCL 0.25% PF 25 MG/10 ML VIAL INJ (09:47)
[2024-07-27] MEDS: METHYLPREDNISOLONE ACETATE 80 MG/ML VIAL INJ (09:47)
[2024-07-27] MEDS: 0.9 % SODIUM CHLORIDE 10 ML SYRINGE - SALINE FLUSH INJ (09:47)
--- NOTE | 2024-07-27 09:47 | P.ON_ITS ---
Date of procedure: 07/27/24 Pre-op diagnosis: Pain due to lumbar stenosis with neurogenic claudication Post-op diagnosis: same as pre-op Procedure: Procedure: Left L4-5, L5-S1 transforaminal epidural steroid injection Medications: Bupivacaine 0.25% 2cc, lidocaine 2% 1cc, depomedrol 80mg The patient was seen and examined in the preoperative holding area.? Informed consent was obtained and placed on the chart.? Patient was brought to the medical procedure unit and placed in the prone position where a timeout was completed verifying the correct patient, procedure site, position, and planned special equipment using sterile aseptic technique.? Under direct fluoroscopic visualization a 25-gauge Quincke tipped spinal needle was advanced to the designated neural foramen where contrast dye was injected to show adequate spread.? The needle was inserted at level left L4-5. There was no evidence of vascular or adverse uptake.? Epidural spread was appreciated.? The above- mentioned injectate was then placed in a 1.5 mL aliquot preceded by negative aspiration.? The needle was removed. The needle was inserted and the procedure repeated at level left L5-S1.? The surgery site was covered.? Patient was taken to the postprocedural recovery area and monitored for an appropriate length of time before found suitable for discharge in the accompaniment of a responsible adult. Anesthesia: Local Surgeon: Vinod Gray Pathology: none sent Condition: stable Disposition: no change
== END 2024-07-27 09:52 | disposition home or self-care (01) ==
LOC: SURGOUT 08:22
PROVIDERS: PCP Nurse Practitioner; Visit Provider Anesthesiology
DX: M48.062 Spinal stenosis, lumbar region with neurogenic claudication (principal)
CPT/HCPCS: 64483; 64484; J0665; J1010; Q9966

== ENCOUNTER 2024-08-06 09:58 | Outpatient (OUT) | payer MEDICARE, SELFPAY ==
--- OUTSIDE RECORDS SUMMARY | 2024-07-28 13:00 | XMS_ITS | Encounter Summary ---
Author Organization [facility] Address [address] [place] [address] Care Team Providers Care Umbrella Tipper Hand Name Role Phone Marium Dumont ENROBER TENDER Unavailable [phone] Joao Law MD Primary Care Provider [phone] Niurka Bruce ENROBER TENDER Unavailable [phone] Reason for Referral * Consultation (Routine) - Authorized Specialty Diagnoses / Procedures Referred By Diogo arroyo Referred To Contact Orthopaedic Surgery Diagnoses Chronic midline low back pain, unspecified whether sciatica present Degeneration of intervertebral disc of lumbar region with discogenic back pain and lower extremity pain Retrolisthesis of vertebrae Niurka Bruce NP [address] [place] [address] Phone: tel: fax: Joni Thompson MD [address] [place] [address] Phone: tel: fax: Referral ID Status Reason Start Date Expiration Date Visits Requested Visits Authorized [id number] Authorized Specialty Services Required 07/28/2024 01/24/2025 1 1 Reason for Visit * Reason Comments Follow-up Encounter Details Date Type Department Care Team ([facility] Contact Info) Description 07/28/2024 1:00 PM EDT [facility] [address] [place] [address] Niurka Bruce, JAMES [address] [place] [address] Primary hypertension (CMS/HCC) (Primary Dx); Pulmonary emphysema, unspecified emphysema type (CMS/HCC); Cigarette nicotine dependence without complication; Mild episode of recurrent major depressive disorder (HCC) (CMS/HCC); Mixed hyperlipidemia (CMS/HCC); Chronic midline low back pain, unspecified whether sciatica present; Degeneration of intervertebral disc of lumbar region with discogenic back pain and lower extremity pain; Retrolisthesis of vertebrae Social History Tobacco Use Types Packs/Day Years Used Date Smoking Tobacco: Every Day Cigarettes 1.5 45 Smokeless Tobacco: Never Comments:Started smoking whe n i was 17 Alcohol Use Standard Drinks/Week Comments Yes 4 (1 standard drink = 0.6 oz pur e alcohol) B1300 Health Literacy Answer Date Recor ded How often do you need to hav e someone help you when you read instructions, pamphlets, or other written material from your doctor or pharmacy? Never 01/20/2024 Social Connection and Isolat ion Panel [NHANES] Answer Date Recorded In a typical week, how many times do you talk on the phone with family, friends, or neighbors? More than three times a week 01/20/2024 How often do you get togethe r with friends or relatives? More than three times a week 01/20/2024 How often do you attend chur ch or druze services? Never 01/20/2024 Do you belong to any clubs o r organizations such as yazdanism groups, unions, fraternal or athletic groups, or school groups? No 01/20/2024 How often do you attend meet ings of the clubs or organizations you belong to? Never 01/20/2024 Are you , , di vorced, , never , or living with a partner? Living with partner 01/20/2024 AUDIT-C Answer Date Recorded Q1: How often do you have a drink containing alc ohol? 2-4 times a month 01/20/2024 Q2: How many drinks containi ng alcohol do you have on a typical day when you are drinking? 3 or 4 01/20/2024 Q3: How often do you have si x or more drinks on one occasion? Less than monthly 01/20/2024 Overall Financial Resource Strain (CARDIA) Answe r Date Recorded How hard is it for you to pa y for the very basics like food, housing, medical care, and heating? Somewhat hard 01/20/2024 [facility] - Occupational Stress Questionnaire Answer Date Recorded Do you feel stress - tense, restless, nervous, or anxious, or unable to sleep at night because your mind is troubled all the time - these days? Very much 01/20/2024 Exercise Vital Sign Answer Date Recorde d On average, how many days pe r week do you engage in moderate to strenuous exercise (like a brisk walk)? 5 days 01/20/2024 On average, how many minutes do you engage in exercise at this level? 60 min 01/20/2024 Hunger Vital Sign Answer Date Recorded Within the past 12 months, y ou worried that your food would run out before you got the money to buy more. Sometimes true Within the past 12 months, t he food you bought just didn't last and you didn't have money to get more. Sometimes true 01/2024 PRAPARE - Transportation Answer Date Re corded In the past 12 months, has l ack of transportation kept you from medical appointments or from getting medications? Yes 01/09 In the past 12 months, has l ack of transportation kept you from meetings, work, or from getting things needed for daily living? Yes 01/20/2024 Housing Stability Vital Sign Answer Aj e Recorded In the last 12 months, was t here a time when you were not able to pay the mortgage or rent on time? Yes 01/20/2024 In the past 12 months, how m any times have you moved where you were living? 0 01/20/2024 At any time in the past [address] [facility], were you homeless or living in a prison (including now)? Yes 01/20/2024 Sex and Gender Information Value Date Recorded Sex Assigned at Not on file Legal Sex Male 4:33 PM EDT Gender Identity Male 05/26/2024 9:13 AM EDT Sexual Orientation Not on file documented as of this encounter Last Filed Vital Signs Vital Sign Reading Time Taken Comments Blood Pressure 152/98 07/28/2024 1:04 PM EDT Pulse 68 07/28/2024 1:04 PM EDT Temperature 36.7 C (98.1 F) 07/28/2024 1:04 PM EDT Respiratory Rate 18 07/28/2024 1:04 PM EDT Oxygen Saturation 98% 07/28/2024 1:04 PM EDT Inhaled Oxygen Concentration - - Weight 60.8 kg (134 lb) 07/28/2024 1:04 PM EDT Height - - Body Mass Index 23 01/28/2024 11:18 AM EST documented in this encounter Patient Instructions * Patient Instructions* Niurka Bruce NP - 07/28/2024 1:00 PM EDT Stop lisinopril 10mg, new dose is 20mg daily Referral to Dr Joni Thompson [place], [place] documented in this encounter Progress Notes * Niurka Bruce NP - 07/28/2024 1:29 PM EDTAssociated Problem(s): DDD (degenerative disc disease), lumbar Under care of pain mgmt Saw neurosurgery no surgery Would like second opinion Cont with pain mgmt until seen by neurosurgeon * Niurka Bruce NP - 07/28/2024 1:28 PM EDTAssociated Problem(s): Retrolisthesis of vertebrae MRI report 09/17/23 * Niurka Bruce NP - 07/28/2024 1:00 PM EDT Images from the original note were not included. Jatin Montesaria Trevino is a 58 y.o. male presents with chief complaint of Follow-up HPI: Had injection yesterday with pain mgmt, no benefit so far Pain daily 12/18, poor quality of life d/t this Hypertension This is a chronic problem. The current episode started more than 1 year ago. The problem is unchanged. The problem is uncontrolled. Pertinent negatives include no chest pain, palpitations, peripheraledema or shortness of breath. There are no associated agents to hypertension. Risk factors for coronary artery disease include male gender. Past treatments include EMILIA inhibitors. The current treatment provides moderate improvement. There are no compliance problems. SUBJECTIVE: MEDICATIONS: Current Outpatient Medications Medication Instructions amLODIPine (NORVASC) 5 mg, Oral, Daily ARIPiprazole (ABILIFY) 20 mg, Oral, Daily divalproex (DEPAKOTE ER) 500 mg, Oral, Daily folic acid (FOLVITE) 1 mg, Oral, Daily gabapentin (NEURONTIN) 300 mg, 3 times daily lisinopril 20 mg, Oral, Daily pantoprazole (PROTONIX) 40 mg, Oral, Daily before breakfast, Do not crush, chew, or split. rosuvastatin (CRESTOR) 10 mg, Oral, Nightly tiZANidine (ZANAFLEX) 4 mg, Oral, Every 8 hours PRN traZODone (DESYREL) 100 mg, Oral, Nightly ALLERGIES: No Known Allergies REVIEW OF SYMPTOMS: Review of Systems Constitutional: Negative for activity change, appetite change and unexpected weight change. HENT: Negative for ear pain, nosebleeds, sneezing, trouble swallowing and voice change. Eyes: Negative for pain, discharge and visual disturbance. Respiratory: Negative for apnea, chest tightness, shortness of breath and wheezing. Cardiovascular: Negative for chest pain, palpitations and leg swelling. Gastrointestinal: Negative for abdominal distention, blood in stool, constipation and diarrhea. Genitourinary: Negative for decreased urine volume, difficulty urinating, dysuria and hematuria. Musculoskeletal: Positive for back pain and myalgias. Skin: Negative for color change. Neurological: Negative for dizziness, tremors and seizures. Psychiatric/Behavioral: Negative for agitation, decreased concentration, hallucinations, self-injury and suicidal ideas. The patient is not nervous/anxious. Hematological: Negative for adenopathy. Does not bruise/bleed easily. Endocrine: Negative for cold intolerance, heat intolerance, polydipsia and polyuria. Allergic/Immunologic: Negative for environmental allergies and food allergies. PAST MEDICAL HISTORY Past Medical History: Diagnosis Date Anxiety Arthritis Depression (CMS/HCC) Headache Hypertension (CMS/HCC) Myocardial infarction (CMS/HCC) Neuromuscular disorder (CMS/HCC) History reviewed. No pertinent surgical history. family history includes Alcohol abuse in his father; Arthritis in his mother and sister; Depressionin his mother; Early natural in his father; Hypertension in his mother. OBJECTIVE: Visit Vitals BP (!) 152/98 (BP Location: Left arm, Patient Position: Sitting, BP Cuff Size: Adult long) Pulse 68 Temp 98.1 ??F (Temporal) Resp 18 Wt 134 lb SpO2 98% BMI 23.00 kg/m?? Smoking Status Every Day BSA 1.66 m?? Physical Exam Vitals and nursing note reviewed. Constitutional: Appearance: Normal appearance. HENT: Head: Normocephalic. Right Ear: External ear normal. Left Ear: External ear normal. Nose: Nose normal. Mouth/Throat: Mouth: Mucous membranes are moist. Pharynx: Oropharynx is clear. Eyes: Extraocular Movements: Extraocular movements intact. Conjunctiva/sclera: Conjunctivae normal. Cardiovascular: Rate and Rhythm: Normal rate and regular rhythm. Pulses: Normal pulses. Heart sounds: Normal heart sounds. Pulmonary: Effort: Pulmonary effort is normal. Breath sounds: Normal breath sounds. Musculoskeletal: Cervical back: Neck supple. Right lower leg: No edema. Left lower leg: No edema. Skin: General: Skin is warm and dry. Capillary Refill: Capillary refill takes 2 to 3 seconds. Neurological: General: No focal deficit present. Mental Status: He is alert. Psychiatric: Mood and Affect: Mood normal. Behavior: Behavior normal. Thought Content: Thought content normal. Judgment: Judgment normal. ASSESSMENT AND PLAN: Follow up in about 6 weeks (around 09/08/2024) for Recheck. Problem List Items Addressed This Visit Hypertension (CMS/HCC) Please check blood pressure daily and record DASH diet Limit caffeine Take medication as directed Contact office if chest pain, pressure, dizziness, shortness of breath, swelling legs Recommend slow position changes Current meds: amlodipine, lisinopril Increase dose on lisinopril to 20mg daily Relevant Medications lisinopril 20 MG tablet Depression (CMS/HCC) Current meds: trazodone, abilify, depakote Retrolisthesis of vertebrae MRI report 09/17/23 Relevant Orders Ambulatory referral to Orthopaedic Surgery Emphysema, unspecified - Primary No inhalers +dyspnea no wheezing Mixed hyperlipidemia (CMS/HCC) On statin therapy Check labs yearly and prn dose changes Cigarette nicotine dependence without complication The patient has been advised of the risks of continued smoking: stroke, UT, all forms of cancer, lung disease, and . Options for quitting smoking include: cold turkey, hypnosis, acupuncture, nicotine replacement meds(gum, lozenges, and patches), Buproprion, and Varenicline. At this time pt is encouraged to evaluate their goals for wanting to quit smoking, and reach out toprovider when ready to start this process Chronic midline low back pain Relevant Orders Ambulatory referral to Orthopaedic Surgery DDD (degenerative disc disease), lumbar Under care of pain mgmt Saw neurosurgery no surgery Would like second opinion Cont with pain mgmt until seen by neurosurgeon Relevant Orders Ambulatory referral to Orthopaedic Surgery * Niurka Bruce NP - 07/28/2024 6:30 AM EDTAssociated Problem(s): Mixed hyperlipidemia (CMS/HCC) On statin therapy Check labs yearly and prn dose changes * Niurka Bruce NP - 07/28/2024 6:30 AM EDTAssociated Problem(s): Depression (CMS/HCC) Current meds: trazodone, abilify, depakote * Niurka Bruce NP - 07/28/2024 6:29 AM EDTAssociated Problem(s): Cigarette nicotine dependence without complication The patient has been advised of the risks of continued smoking: stroke, UT, all forms of cancer, lung disease, and . Options for quitting smoking include: cold turkey, hypnosis, acupuncture, nicotine replacement meds(gum, lozenges, and patches), Buproprion, and Varenicline. At this time pt is encouraged to evaluate their goals for wanting to quit smoking, and reach out toprovider when ready to start this process * Niurka Bruce NP - 07/28/2024 6:29 AM EDTAssociated Problem(s): Hypertension (CMS/HCC) Please check blood pressure daily and record DASH diet Limit caffeine Take medication as directed Contact office if chest pain, pressure, dizziness, shortness of breath, swelling legs Recommend slow position changes Current meds: amlodipine, lisinopril Increase dose on lisinopril to 20mg daily * Niurka Bruce NP - 07/28/2024 6:29 AM EDTAssociated Problem(s): Emphysema, unspecified No inhalers +dyspnea no wheezing documented in this encounter Plan of Treatment Upcoming Encounters Date Type Department Care Team (Late st Contact Info) Description 09/08/2024 9:20 AM EDT Office Visit [facility] [address] [place] [address] Niurka Bruce NP [address] [place] [address] Scheduled Referrals Name Type Priority Associated Diagnoses Orde r Schedule Ambulatory referral to Orthopaedic Surgery Outpatient Referral Routine Chronic midline low back pain, unspecified whether sciatica present Degeneration of intervertebral disc of lumbar region with discogenic back pain and lower extremity pain Retrolisthesis of vertebrae Expected: 07/28/2024 (Approximate), Expires: 01/28/2025 documented as of this encounter Visit Diagnoses Diagnosis Primary hypertension (CMS/HCC)- Primary Unspecified essential hypertension Pulmonary emphysema, unspecified emphysema type (CMS/HCC) Cigarette nicotine dependence without complication Mild episode of recurrent major depressive disorder (HCC) (CMS/HCC) Mixed hyperlipidemia (CMS/HCC) Mixed hyperlipidemia Chronic midline low back pain, unspecified whether sciatica present Degeneration of intervertebral disc of lumbar region with discogenic back pain and lower extremity pain Retrolisthesis of vertebrae documented in this encounter Care Teams Umbrella Tipper Hand Relationship Specialty Start Date End Date Joao Law MD [address] [place] [address] PCP - General Family Medicine 01/09/24 Niurka Bruce NP [address] [place] [address] PCP - [facility] 12/10/23 01/09/88 Marium Dumont NP Nurse Practitioner Family Medicine 12/11/23 documented as of this encounter
--- OUTSIDE RECORDS SUMMARY | 2024-08-06 10:00 | XMS_ITS | Encounter Summary ---
Author Organization [facility] Address [address] [place] [address] Care Team Providers Care Sand Blaster Name Role Phone Marium Dumont MACHINE OPERATOR PACKAGING Unavailable [phone] Joao Law MD Primary Care Provider [phone] Niurka Bruce MACHINE OPERATOR PACKAGING Unavailable [phone] Encounter Details Date Type Department Care Team (Late st Contact Info) Description 06/03/2024 Orders Only [facility] [address] [place] [address] Niurka Bruce NP [address] [place] [address] Social History Tobacco Use Types Packs/Day Years [...] week 01/20/2024 How often do you attend [facility] or protestant services? Never 01/20/2024 Do you belong to any clubs o r organizations such as buddhism groups, unions, fraternal or athletic groups, or [...] medical care, and heating? Somewhat hard 01/20/2024 [facility] of Occupat ional Health - Occupational Stress Questionnaire Answer Date Recorded [...] any time in the past [address] [facility], were you homeless or living in a intermediate (including now)? Yes 01/20/2024 Sex and Gender Information Value Date Recorded Sex Assigned at Not on file Legal Sex Male 4:33 PM EDT Gender Identity Male 05/26/2024 9:13 AM EDT Sexual Orientation Not on file documented as of this encounter Plan of Treatment Upcoming Encounters Date Type Department Care Team (Late st Contact Info) Description 09/08/2024 9:20 AM EDT Office Visit [facility] [address] [place] [address] Niurka Bruce NP [address] [place] [address] documented as of this encounter Procedures Procedure Name Priority Date/Time Associated Diagnosis Comments MR LUMBAR SPINE WO CONTRAST Routine 06/03/2024 8:14 AM EDT documented in this encounter Results * MR lumbar spine wo contrast (06/03/2024 8:14 AM EDT) Anatomical Region Laterality Modality Spine, L-spine Magnetic Resonan ce Niurka Bruce NP IMG MRI PROCEDURES Final Result documented in this encounter Visit Diagnoses Not on filedocumented in this encounter Care Teams Sand Blaster Relationship Specialty Start Date End Date Joao Law MD [address] [place] [address] PCP - General Family Medicine 01/09/24 Niurka Bruce NP [address] [place] [address] PCP - [facility] 12/10/23 01/09/88 Marium Dumont NP Nurse Practitioner Family Medicine 12/11/23 documented as of this encounter
--- OUTSIDE RECORDS SUMMARY | 2024-08-06 10:00 | XMS_ITS | Clinical Summary ---
Author Organization [facility] Address [address] [place] [address] Care Team Providers Care Valve And Regulator Repairer Name Role Phone Marium Dumont ELECTRO OPTICAL ENGINEER Unavailable [phone] Joao Law MD Primary Care Provider [phone] Niurka Bruce ELECTRO OPTICAL ENGINEER Unavailable [phone] Allergies No known active allergies Medications amLODIPine (Norvasc) 5 MG tabletIndications: Primary hypertension (CMS/HCC) Take 1 tablet (5 mg) by mouth Daily 90 tablet 1 5 09/29/19 25 Active ARIPiprazole (Abilify) 20 MG tabletIndications: Recurrent major depressive disorder, in partial remission (HCC) (CMS/HCC) Take 1 tablet (20 mg) by mouth Daily 90 tablet 1 5 09/29/19 25 Active divalproex (Depakote ER) 500 MG 24 hr tabletIndications: Anxiety Take 1 tablet (500 mg) by mouth Daily 90 tablet 1 5 09/29/19 25 Active folic acid (Folvite) 1 MG tabletIndications: Recurrent major depressive disorder, in partial remission (HCC) (CMS/HCC) Take 1 tablet (1 mg) by mouth Daily 90 tablet 1 5 09/29/19 25 Active pantoprazole (ProtoNix) 40 MG EC tabletIndications: Heartburn Take 1 tablet (40 mg) by mouth in the morning. Take before meals. Do not crush, chew, or split. 90 tablet 1 5 09/29/19 25 Active rosuvastatin (Crestor) 10 MG tabletIndications: Other hyperlipidemia Take 1 tablet (10 mg) by mouth at bedtime 90 tablet 1 5 09/29/19 25 Active tiZANidine (Zanaflex) 2 MG tabletIndications: Bulging lumbar disc,Retrolisthesi s of vertebrae,Chronic midline low back pain, unspecified whether sciatica present Take 2 tablets (4 mg) by mouth every 8 (eight) hours if needed for muscle spasms 90 tablet 1 5 Active traZODone (Desyrel) 100 MG tabletIndications: Anxiety Take 1 tablet (100 mg) by mouth at bedtime 90 tablet 1 5 09/29/19 25 Active gabapentin (Neurontin) 300 MG capsule Take 300 mg by mouth in the morning and 300 mg in the evening and 300 mg before bedtime. 5 Active lisinopril 20 MG tabletIndications: Primary hypertension (CMS/HCC) Take 1 tablet (20 mg) by mouth Daily 90 tablet 5 10/27/19 25 Active lisinopril 10 MG tabletIndications: Primary hypertension (CMS/HCC) Take 1 tablet (10 mg) by mouth Daily 90 tablet 1 5 07/29/19 25 Discontin ued(Ineff ective) Active Problems Problem Noted Date Diagnosed Date DDD (degenerative disc disease), lumbar 07/29/19 Assessment & Plan (07/28/2024 1:29 PM EDT): Under care of pain mgmt Saw neurosurgery no surgery Would like second opinion Cont with pain mgmt until seen by neurosurgeon Emphysema, unspecified 06/02/2024 Assessment & Plan (07/28/2024 6:29 AM EDT): No inhalers +dyspnea no wheezing Assessment & Plan (06/02/2024 2:05 PM EDT): No inhalers +dyspnea no wheezing Mixed hyperlipidemia 06/02/2024 Assessment & Plan (07/28/2024 6:30 AM EDT): On statin therapy Check labs yearly and prn dose changes Assessment & Plan (06/02/2024 6:49 AM EDT): On statin therapy Check labs yearly and prn dose changes Cigarette nicotine dependence without complicati on 06/02/2024 Assessment & Plan (07/28/2024 6:29 AM EDT): The patient has been advised of the risks of continued smoking: stroke, DC, all forms of cancer, lung disease, and . Options for quitting smoking include: cold turkey, hypnosis, acupuncture, nicotine replacement meds (gum, lozenges, and patches), Buproprion, and Varenicline. At this time pt is encouraged to evaluate their goals for wanting to quit smoking, and reach out to provider when ready to start this process Assessment & Plan (06/02/2024 6:49 AM EDT): The patient has been advised of the risks of continued smoking: stroke, DC, all forms of cancer, lung disease, and . Options for quitting smoking include: cold turkey, hypnosis, acupuncture, nicotine replacement meds (gum, lozenges, and patches), Buproprion, and Varenicline. At this time pt is encouraged to evaluate their goals for wanting to quit smoking, and reach out to provider when ready to start this process Prostate cancer screening 06/02/2024 Chronic midline low back pain 06/02/2024 Retrolisthesis of vertebrae 01/29/2024 Assessment & Plan (07/28/2024 1:28 PM EDT): MRI report 09/17/23 Assessment & Plan (06/02/2024 5:47 PM EDT): MRI report 09/17/23 Bulging lumbar disc 01/29/2024 Assessment & Plan (06/02/2024 5:47 PM EDT): See MRI from 09/17/23 Assessment & Plan (01/29/2024 5:34 PM EST): Has MRI report from [place], has retrolithesis on L5 Dessication at L2-L3 Mild disc buldge @ L4-L5 Was referred to neurosurgeon in [place], but moved prior to appointment. Would like referral to neurosurgeon here. Pt has RX from provider in [place] for hydrocodone-acetaminophen 5-325mg one tablet PO Q12H PRN severe Pain. RX was unable to be filled in [place]. Will fill for ONE month only. Referral sent to neurosurgery. Dysuria 01/29/2024 Assessment & Plan (01/29/2024 5:34 PM EST): Difficulty with urination, difficulty with urinary flow X1 month Denies blood in urine Admits foul odor. UA in office negative. Refer urology GBS (Guillain Bourg syndrome) 01/28/2024 Assessment & Plan (06/02/2024 5:46 PM EDT): Had this 10/29/20 Paralized 31 days, weakness right LE, and left thigh Uses cane History of myocardial infarction 01/28/2024 Screening for malignant neoplasm of colon 2023 Wellness examination 01/28/2024 Assessment & Plan (01/29/2024 5:34 PM EST): I have reviewed Ht/Wt/BMI, I have reviewed [...] GOAL 6-8 hours of sleep per night. Neuromuscular disorder Myocardial infarction Hypertension Assessment & Plan (07/28/2024 1:26 PM EDT): Please check blood pressure daily and record DASH diet Limit caffeine Take medication as directed Contact office if chest pain, pressure, dizziness, shortness of breath, swelling legs Recommend slow position changes Current meds: amlodipine, lisinopril Increase dose on lisinopril to 20mg daily Assessment & Plan (06/02/2024 2:05 PM EDT): Please check blood pressure daily and record DASH diet Limit caffeine Take medication as directed Contact office if chest pain, pressure, dizziness, shortness of breath, swelling legs Recommend slow position changes Current meds: amlodipine, lisinopril Forgot to take meds today Depression Assessment & Plan (07/28/2024 6:30 AM EDT): Current meds: trazodone, abilify, depakote Assessment & Plan (06/02/2024 2:02 PM EDT): Current meds: trazodone, abilify, depakote PHQ 9=23 Arthritis Anxiety Assessment & Plan (06/02/2024 2:02 PM EDT): Current meds: abilify, depakote, trazodone KONSTANTIN 7=21 Resolved Problems Problem Noted Date Diagnosed Date Resolved Date Other hyperlipidemia 01/28/2024 025 Encounters Date Type Department Care Team Description 07/28/2024 1:00 PM EDT Office Visit [facility] [address] [place] [address] Niurka Bruce NP Primary hypertension (CMS/HCC) (Primary Dx); Pulmonary emphysema, unspecified emphysema type (CMS/HCC); Cigarette nicotine dependence without complication; Mild episode of recurrent major depressive disorder (HCC) (CMS/HCC); Mixed hyperlipidemia (CMS/HCC); Chronic midline low back pain, unspecified whether sciatica present; Degeneration of intervertebral disc of lumbar region with discogenic back pain and lower extremity pain; Retrolisthesis of vertebrae 07/28/2024 Bamboo flowsheet [facility] [address] [place] [address] Niurka Bruce NP 07/21/2024 Travel 06/30/2024 Refill [facility] [address] [place] [address] Niurka Bruce, JAMES Primary hypertension (CMS/HCC); Recurrent major depressive disorder, in partial remission (HCC) (CMS/HCC); Anxiety; Heartburn; Other hyperlipidemia; Bulging lumbar disc; Retrolisthesis of vertebrae; Chronic midline low back pain, unspecified whether sciatica present 06/24/2024 Refill [facility] [address] [place] [address] Niurka Bruce NP 06/22/2024 Orders Only [facility] [address] [place] [address] Niurka Bruce NP Bulging lumbar disc (Primary Dx); Retrolisthesis of vertebrae; Chronic midline low back pain, unspecified whether sciatica present 06/22/2024 Refill [facility] [address] [place] [address] Joao Law MD 06/22/2024 Telephone [facility] [address] [place] [address] Niurka Bruce NP 06/18/2024 Telephone [facility] [address] [place] [address] Niurka Bruce NP 06/03/2024 Telephone [facility] [address] [place] [address] Niurka Bruce NP 06/03/2024 Orders Only [facility] [address] [place] [address] Niurka Bruce NP 06/02/2024 1:20 PM EDT Office Visit [facility] [address] [place] [address] Niurka Bruce NP Bulging lumbar disc (Primary Dx); Emphysema, unspecified (CMS/HCC); GBS (Guillain Bourg syndrome) (CMS/HCC); Primary hypertension (CMS/HCC); Anxiety; Mild episode of recurrent major depressive disorder (HCC) (CMS/HCC); Mixed hyperlipidemia (CMS/HCC) ; Cigarette nicotine dependence without complication; Prostate cancer screening; Retrolisthesis of vertebrae; Chronic midline low back pain, unspecified whether sciatica present; Recurrent major depressive disorder, in partial remission (HCC) (CMS/HCC); Other hyperlipidemia (CMS/HCC) 06/02/2024 Bamboo flowsheet [facility] [address] [place] [address] Niurka Bruce NP 05/26/2024 Travel from Last 3 Months Family History Medical History Relation Name Comments Alcohol abuse Father Jatin Yan Sr Early natural Father Jatin Yan Sr Arthritis Mother Kaia A Pj Depression Mother Kaia A Pj Hypertension Mother Kaia A Pj Arthritis Sister Lavern Dixon Van ever Relation Name Status Comments Father Jatin Yan Sr Mother Kaia A Pj Sister Lavern Dixon Van ever Social History Tobacco Use Types Packs/Day Years [...] often do you attend chur ch or taoist services? Never 01/20/2024 Do you belong to [...] medical care, and heating? Somewhat hard 01/20/2024 [facility] [place] of Occupat ional Health - Occupational Stress [...] medical appointments or from getting medications? Yes 11/1 03/2023 In the past 12 months, has l [...] any time in the past [facility], were you homeless or living in a care home (including now)? Yes 01/20/2024 Sex and Gender Information Value Date Recorded Sex Assigned at Not on file Legal Sex Male 4:33 PM EDT Gender Identity Male 05/26/2024 9:13 AM EDT Sexual Orientation Not on file Last Filed Vital Signs Vital Sign Reading Time Taken Comments Blood Pressure 152/98 07/28/2024 1:04 PM EDT Pulse 68 07/28/2024 1:04 PM EDT Temperature 36.7 C (98.1 F) 07/28/2024 1:04 PM EDT Respiratory Rate 18 07/28/2024 1:04 PM EDT Oxygen Saturation 98% 07/28/2024 1:04 PM EDT Inhaled Oxygen Concentration - - Weight 60.8 kg (134 lb) 07/28/2024 1:04 PM EDT Height 162.6 cm (5' 4 ) 01/28/2024 11:18 AM EST Body Mass Index 23 01/28/2024 11:18 AM EST Plan of Treatment Upcoming Encounters Date Type Department Care Team (Late st Contact Info) Description 09/08/2024 9:20 AM EDT Office Visit [facility] [address] [place] [address] Niurka Bruce NP [address] [place] [address] Health Maintenance Due Date Last Done Comments CT Colonography 1967 FIT-DNA 1967 FIT 1967 FOBT 1965 Sigmoidoscopy 1965 Medicare Annual Wellness (AWV) 01/27/2025 01/28/2024 Colonoscopy 03/11/2028 03/11/2018 Colorectal Cancer Screening 03/11/2028 Influenza Vaccine Discontinued Procedures Procedure Name Priority Date/Time Associated Diagnosis Comments MR LUMBAR SPINE WO CONTRAST Routine 06/03/2024 8:14 AM EDT from Last 3 Months Results * MR lumbar spine wo contrast (06/03/2024 8:14 AM EDT) Anatomical Region Laterality Modality Spine, L-spine Magnetic Resonan ce Niurka Bruce ELECTRO OPTICAL ENGINEER IMG MRI PROCEDURES Final Result from Last 3 Months Insurance [facility] Care Teams Valve And Regulator Repairer Relationship Specialty Start Date End Date Joao Law MD [address] [place] [address] PCP - General Family Medicine 01/09/24 Niurka Bruce NP [address] [place] [address] PCP - [facility] 12/10/23 01/09/88 Marium Dumont NP Nurse Practitioner Family Medicine 12/11/23
--- OUTSIDE RECORDS SUMMARY | 2024-08-06 10:00 | XMS_ITS | Clinical Summary ---
Author Organization [facility] tem Address [id number] [address] [place] [address] Care Team Providers Care Tube Bender Name Role Phone Teo Niurka Dixon APRN-WORKFORCE CONSULTANT Primary Care Provider Allergies No known active allergies Medications predniSONE (DELTASONE) 20 mg tablet Take 2 tablets (40 mg total) by mouth in the morning for 7 days. 14 tablet 07/01/2024 07/09/19 25 naproxen (NAPROSYN) 375 mg tablet Take 1 tablet (375 mg total) by mouth in the morning and 1 tablet (375 mg total) in the evening. Take with meals. Do all this for 7 days. 14 tablet 07/01/2024 07/09/19 25 cyclobenzaprine (FLEXERIL) 10 mg tablet Take 1 tablet (10 mg total) by mouth 2 (two) times a day as needed for muscle spasms for up to 30 days. 10 tablet 07/01/2024 08/01/19 25 Encounters Date Type Department Care Team Description 07/01/2024 9:19 AM EDT - 07/01/2024 9:51 AM EDT Emergency [facility] - Emergency [address] [place] [phone] Roosevelt Barrios MD Lumbar pain (Primary Dx) Discharge Disposition: Home 07/01/2024 Travel from Last 3 Months Social History Tobacco Use Types Packs/Day Years Used Date Smoking Tobacco: Never Assessed Hunger Screening Answer Date Recorded Within the past 12 months we worried whether our food would run out before we got money to buy more. Never True 07/01/2024 Within the past 12 months th e food we bought just didn't last and we didn't have money to get more. Never True 07/01/2024 Sex and Gender Information Value Date Recorded Sex Assigned at Not on file Legal Sex Male 9:18 AM EDT Gender Identity Not on file Sexual Orientation Not on file Last Filed Vital Signs Vital Sign Reading Time Taken Comments Blood Pressure 153/87 07/01/2024 9:27 AM EDT Pulse 68 07/01/2024 9:27 AM EDT Temperature 36.5 C (97.7 F) 07/01/2024 9:27 AM EDT Respiratory Rate 20 07/01/2024 9:27 AM EDT Oxygen Saturation 100% 07/01/2024 9:27 AM EDT Inhaled Oxygen Concentration - - Weight 61.7 kg (136 lb) 07/01/2024 9:27 AM EDT Height 162.6 cm (5' 4 ) 07/01/2024 9:27 AM EDT Body Mass Index 23.34 07/01/2024 9:27 AM EDT Plan of Treatment Health Maintenance Due Date Last Done Comments Depression Screening 1979 Tobacco Screening 1977 DTaP,Tdap and Td Vaccines (1 - Tdap) 12/19/1986 Zoster (Shingles) Vaccine (1 of 2) 12/19/2017 Influenza Vaccine 11/09/2024 Adult BMI Screening 07/01/2025 07/01/2024 Medical Devices Not on file Insurance * Guarantor: Jatin Yan Jr. Account Type Relation to Patient Date of Phone Billing Address Personal/Family Self 1965 [address] [place] [address] [facility] MEDICARE Care Teams Tube Bender Relationship Specialty Start Date End Date Niurka Bruce, STEAM TUNNEL FEEDER-WORKFORCE CONSULTANT PCP - General Nurse Practitioner 07/01/24
--- OUTSIDE RECORDS SUMMARY | 2024-08-06 10:01 | XMS_ITS | Encounter Summary ---
Author Organization [facility] Address [address] [place] [address] Care Team Providers Care Clinical Data Manager Name Role Phone Marium Dumont NUCLEAR ENGINEER Unavailable [phone] Joao Law MD Primary Care Provider [phone] Niurka Bruce NUCLEAR ENGINEER Unavailable [phone] Encounter Details Date Type Department Care Team (Late st Contact Info) Description 01/28/2024 Abstract [facility] [address] [place] [address] Marium Dumont NP Social History Tobacco Use Types Packs/Day Years [...] 01/20/2024 How often do you attend chur or sikhism services? Never 01/20/2024 Do you belong to any clubs o r organizations such as adventism groups, unions, fraternal or athletic groups, or [...] medical care, and heating? Somewhat hard 01/20/2024 [facility] of Occupat ional Health - Occupational Stress [...] any time in the past 12 m [facility], were you homeless or living in a half-way (including now)? Yes 01/20/2024 Sex and Gender [...] Office Visit [facility] [address] [place] [address] Niurka Bruce NP [address] [address] documented as of this encounter Visit Diagnoses Not on filedocumented in this encounter Care Teams Clinical Data Manager Relationship Specialty Start Date End Date Joao Law MD [address] [place] [address] PCP - General Family Medicine 01/09/24 Niurka Bruce NP [address] [place] [address] PCP - [facility] 12/10/23 01/09/88 Marium Dumont NP Nurse Practitioner Family Medicine 12/11/23 documented as of this encounter
--- OUTSIDE RECORDS SUMMARY | 2024-08-06 10:01 | XMS_ITS | Encounter Summary ---
Author Organization [facility] Address [address] [place] [address] Care Team Providers Care Motor Block Mechanic Name Role Phone Marium Dumont MACHINE FITTER Unavailable [phone] Joao Law MD Primary Care Provider [phone] Niurka Bruce MACHINE FITTER Unavailable [phone] Encounter Details Date Type Department Care Team (Late st Contact Info) Description 02/18/2024 Orders Only [facility] [address] [place] [address] Marium Dumont NP Social History Tobacco Use [...] How often do you attend chur or methodist services? Never 01/20/2024 Do you belong to any clubs o r organizations such as confucianism groups, unions, fraternal or athletic groups, or [...] medical care, and heating? Somewhat hard 01/20/2024 [facility] of Occupat ional Health - Occupational Stress [...] Office Visit [facility] [address] [place] [address] Niurka Bruce NP [address] [place] [address] documented as of this encounter Visit Diagnoses Not on filedocumented in this encounter Care Teams Motor Block Mechanic Relationship Specialty Start Date End Date Joao Law MD [address] [place] [address] PCP - General Family Medicine 01/09/24 Niurka Bruce NP [address] [place] [address] PCP - [facility] 12/10/23 01/09/88 Marium Dumont NP Nurse Practitioner Family Medicine 12/11/23 documented as of this encounter
--- OUTSIDE RECORDS SUMMARY | 2024-08-06 10:01 | XMS_ITS | Encounter Summary ---
Author Organization [facility] Address [address] [place] [address] Care Team Providers Care Strip Roller Name Role Phone Marium Dumont SAGGER FILLER Unavailable [phone] Joao Law MD Primary Care Provider [phone] Niurka Bruce SAGGER FILLER Unavailable [phone] Reason for Visit * Reason Onset Date Comments Med Refill 06/22/2024 Encounter Details Date Type Department Care Team (Late st Contact Info) Description 06/22/2024 [facility] [address] [place] [address] oJao Law MD [address] [place] [address] Social History Tobacco Use Types Packs/Day Years [...] often do you attend chur ch or buddhism services? Never 01/20/2024 Do you belong to any clubs o r organizations such as orthodoxy groups, unions, fraternal or athletic groups, or [...] medical care, and heating? Somewhat hard 01/20/2024 [facility] of Occupat ional Health - Occupational [...] were you homeless or living in a snf (including now)? Yes 01/20/2024 Sex and Gender [...] Office Visit [facility] [address] [place] [address] Niurka Bruce NP [address] [place] [address] documented as of this encounter Visit Diagnoses Not on filedocumented in this encounter Care Teams Strip Roller Relationship Specialty Start Date End Date Joao Law MD [address] [place] [address] PCP - General Family Medicine 01/09/24 Niurka Bruce NP [address] [place] [address] PCP - [facility] 12/10/23 01/09/88 Marium Dumont NP Nurse Practitioner Family Medicine 12/11/23 documented as of this encounter
--- OUTSIDE RECORDS SUMMARY | 2024-08-06 10:13 | XMS_ITS | CCD ---
Author Organization [facility] Care Team Providers [employer] Food Service Supervisor Name Role Phone Julia RAMIREZ, Marium Unavailable [phone] Ani RFANCE, Joao Primary Care Provider [phone] Teo AIRPORT SCREENER, Niurka Unavailable Isaac FRANCE, Vinod Schmidt Attending Unavailable Julia RAMIREZ, Marium Unavailable Niurka Bruce Primary Care Unavailable Mi Shipman Attending Unavailable Mi Shipman Admitting Unavailable BERONICA DOHERTY Attending Unavailable NIURKA BRUCE Primary Care Unavailable Niurka Bruce Primary Care Provider [phone] Mi Shipman APRN Attending Provider NIURKA BRUCE Attending Unavailable NIURKA BRUCE Attending Unavailable MARIUM DUMONT Attending Unavailabl e Medications Current Medications Medication Drug Class(es) Dates Sig (Normalized) Sig (Original) acetaminophen 325 mg / HYDROcodone bitartrate 5 mg oral tablet (6 sources) Opioid Agonist Start: 06-30-2024 take 1 tablet by mouth twice daily as needed Hydrocodone-Aceta minophen 5-325 mg tablet Active 1 TAB PO Twice daily as needed June 30, 2024 12:00am Start: 01-29-2024 End: 02-28-2024 take 1 tablet by mouth once HYDROcodone-acetaminophen (Rumsey) 5-325 MG tablet Indications: Retrolisthesis of vertebrae , Bulging lumbar disc Take 1 tablet by mouth every 12 (twelve) hours if needed for severe pain 60 tablet 01/29/2024 02/28/2024 Active amLODIPine 5 mg oral tablet (12 sources) Dihydropyridine Calcium Channel Maricel Start: 06-02-2024 End: 09-28-2024 take 1 tablet by mouth once daily amLODIPine (Norvasc) 5 MG tablet Indications: Primary hypertension (CMS/HCC) Take 1 tablet (5 mg) by mouth Daily 90 tablet 1 06/30/2024 09/28/2024 Active take 1 tablet by mouth once faraz y amLODIPine (Norvasc) 5 MG tablet Take 5 mg by mouth Daily Active ARIPiprazole 20 mg oral tablet (11 sources) Atypical Antipsychotic Start: 06-02-2024 End: 09-28-2024 take 1 tablet by mouth once daily ARIPiprazole (Abilify) 20 MG tablet Indications: Recurrent major depressive disorder, in partial remission (HCC) (CMS/HCC) Take 1 tablet (20 mg) by mouth Daily 90 tablet 1 06/30/2024 09/28/2024 Active Start: 02-18-2024 End: 02-18-2024 take 1 tablet by mouth once daily ARIPiprazole (Abilify) 20 MG tablet Indications: Recurrent major depressive disorder, in partial remission (HCC) (CMS/HCC) Take 1 tablet (20 mg) by mouth Daily 30 tablet 1 02/18/2024 Active folic acid 1 mg oral tablet (11 sources) Start: 06-02-2024 End: 09-28-2024 take 1 tablet by mouth once daily folic acid (Folvite) 1 MG tablet Indications: Recurrent major depressive disorder, in partial remission (HCC) (CMS/HCC) Take 1 tablet (1 mg) by mouth Daily 90 tablet 1 06/30/2024 09/28/2024 Active Start: 02-18-2024 End: 02-18-2024 take 1 tablet by mouth once daily folic acid (Folvite) 1 MG tablet Indications: Recurrent major depressive disorder, in partial remission (HCC) (CMS/HCC) Take 1 tablet (1 mg) by mouth Daily 30 tablet 1 02/18/2024 Active gabapentin 300 mg oral capsule (1 source) Anti-epileptic Agent Start: 06-15-2024 take 1 capsule by mouth in the morning, then take 1 capsule by mouth in the evening, then take 1 capsule by mouth at bedtime gabapentin (Neurontin) 300 MG capsule Take 300 mg by mouth in the morning and 300 mg in the evening and 300 mg before bedtime. 06/15/2024 Active lisinopril 20 mg oral tablet (12 sources) Angiotensin Converting Enzyme Inhibitor Start: 07-28-2024 End: 10-26-2024 take 1 tablet by mouth once daily lisinopril 20 MG tablet Indications: Primary hypertension (CMS/HCC) Take 1 tablet (20 mg) by mouth Daily 90 tablet 07/28/2024 10/26/2024 Active Start: 06-02-2024 End: 09-28-2024 take 1 tablet by mouth once daily lisinopril 10 MG tablet Indications: Primary hypertension (CMS/HCC) Take 1 tablet (10 mg) by mouth Daily 90 tablet 1 06/30/2024 07/28/2024 Discontinued (Ineffective) Start: 02-18-2024 End: 02-18-2024 take 1 tablet by mouth once daily lisinopril 10 MG tablet Indications: Primary hypertension (CMS/HCC) Take 1 tablet (10 mg) by mouth Daily 30 tablet 1 02/18/2024 Active pantoprazole 40 mg delayed release oral tablet (11 sources) Proton Pump Inhibitor Start: 02-18-2024 End: 09-28-2024 take 1 tablet by mouth before mealtime pantoprazole (ProtoNix) 40 MG EC tablet Indications: Heartburn Take 1 tablet (40 mg) by mouth in the morning. Take before meals. Do not crush, chew, or split. 90 tablet 1 06/30/2024 09/28/2024 Active rosuvastatin calcium 10 mg oral tablet (11 sources) HMG-CoA Reductase Inhibitor Start: 06-02-2024 End: 09-28-2024 take 1 tablet by mouth at bedtime rosuvastatin (Crestor) 10 MG tablet Indications: Other hyperlipidemia Take 1 tablet (10 mg) by mouth at bedtime 90 tablet 1 06/30/2024 09/28/2024 Active Start: 02-18-2024 End: 02-18-2024 take 1 tablet by mouth once daily rosuvastatin (Crestor) 10 MG tablet Indications: Other hyperlipidemia (CMS/HCC) Take 1 tablet (10 mg) by mouth Daily 30 tablet 1 02/18/2024 Active tiZANidine 2 mg oral tablet (8 sources) Central alpha-2 Adrenergic Agonist Start: 06-30-2024 take 1 capsule by mouth every eight hours as needed Tizanidine 2 mg capsule Active 2 MG PO Every 8 hours as needed June 30, 2024 12:00am Start: 06-02-2024 End: 07-30-2024 take 1 tablet by mouth every eight hours tiZANidine (Zanaflex) 2 MG tablet Indications: Bulging lumbar disc , Retrolisthesis of vertebrae , Chronic midline low back pain, unspecified whether sciatica present Take 2 tablets (4 mg) by mouth every 8 (eight) hours if needed for muscle spasms 90 tablet 1 06/30/2024 07/30/2024 Active traZODone hydrochloride 100 mg oral tablet (11 sources) Serotonin Reuptake Inhibitor Start: 06-02-2024 End: 09-28-2024 take 1 tablet by mouth at bedtime traZODone (Desyrel) 100 MG tablet Indications: Anxiety Take 1 tablet (100 mg) by mouth at bedtime 90 tablet 1 06/30/2024 09/28/2024 Active Start: 02-18-2024 End: 02-18-2024 take 1 tablet by mouth at bedtime traZODone (Desyrel) 100 MG tablet Indications: Anxiety Take 1 tablet (100 mg) by mouth at bedtime 30 tablet 1 02/18/2024 Active 24 hr divalproex sodium 500 mg extended release oral tablet (11 sources) Mood Stabilizer, Anti-epileptic Agent Start: 06-30-2024 take 1 tablet by mouth twice daily Divalproex (Depakote) 500 mg tablet,delayed release (DR/EC) Active 500 MG PO Twice daily June 30, 2024 12:00am Start: 06-02-2024 End: 09-28-2024 take 1 tablet by mouth once daily divalproex (Depakote ER) 500 MG 24 hr tablet Indications: Anxiety Take 1 tablet (500 mg) by mouth Daily 90 tablet 1 06/30/2024 09/28/2024 Active Start: 02-19-2024 take 1 tablet by al once daily divalproex (Depakote ER) 500 MG 24 hr tablet Indications: Anxiety Take 1 tablet (500 mg) by mouth Daily Do not crush, chew, or split. 90 tablet 02/19/2024 Active End: 02-19-2024 take 1 tablet by mouth once daily divalproex (Depakote ER) 500 MG 24 hr tablet Take 500 mg by mouth Daily Do not crush, chew, or split. 02/19/2024 Discontinued (Reorder) Problems Active Problems Problem Classification Problem Date Documented Da te Episodic/Chronic Acute myocardial infarction (9 sources) Myocardial infarction; Translations: [Acute myocardial infarction, unspecified] 01-28-2024 Chronic Anxiety disorders (12 sources) Anxiety; Translations: [Anxiety disorder, unspecified] 01-28-2024 Chronic Chronic obstructive pulmonary disease and bronchiectasis (6 sources) Pulmonary emphysema; Translations: [Emphysema, unspecified] Onset: 06-02-2024 06-02-2024 Chronic Coronary atherosclerosis and other heart disease (9 sources) History of myocardial infarction; Translations: [Old myocardial infarction] Onset: 01-28-2024 01-28-2024 Chronic Disorders of lipid metabolism (17 sources) Hyperlipidemia; Translations: [Other hyperlipidemia] Onset: 01-28-2024 Resolved: 06-02-2024 01-28-2024 Chronic Essential hypertension (12 sources) Hypertensive disorder; Translations: [Essential (primary) hypertension] 01-28-2024 Chronic Mood disorders (12 sources) Depressive disorder; Translations: [Depression] 01-28-2024 Chronic Osteoarthritis (9 sources) Arthritis; Translations: [Unspecified osteoarthritis, unspecified site] 01-28-2024 Chronic Other acquired deformities (15 sources) Retrolisthesis; Translations: [Spondylolisthesis, site unspecified] Onset: 01-29-2024 01-29-2024 Episodic Other connective tissue disease (2 sources) Other symptoms and signs involving the musculoskeletal system; Translations: [Other musculoskeletal symptoms referable to limbs] Onset: 06-30-2024 06-30-2024 Episodic Other connective tissue disease (1 source) Monoparesis - leg; Translations: [Other symptoms and signs involving the musculoskeletal system] 06-30-2024 Episodic Other gastrointestinal disorders (2 sources) Heartburn; Translations: [Heartburn] 02-18-2024 Episodic Other nervous system disorders (11 sources) Guillain-Roll syndrome; 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] Onset: 01-28-2024 01-28-2024 Chronic Other nervous system disorders (9 sources) Neuromyopathy; Translations: [Myoneural disorder, unspecified] 01-28-2024 Episodic Other screening for suspected conditions (not mental disorders or infectious disease) (16 sources) Patient encounter status; Translations: [Encounter for screening for malignant neoplasm of colon] Onset: 01-28-2024 01-28-2024 Episodic Rheumatoid arthritis and related disease (4 sources) Retrolisthesis 01-29-2024 Chronic Spondylosis; intervertebral disc disorders; other back problems (20 sources) Disorder of lumbar disc; Translations: [Bulging lumbar disc] Onset: 01-29-2024 01-29-2024 Chronic Spondylosis; intervertebral disc disorders; other back problems (15 sources) Chronic low back pain; Translations: [Chronic midline low back pain, unspecified whether sciatica present] Onset: 06-02-2024 06-22-2024 Episodic Substance-related disorders (6 sources) Tobacco dependence caused by cigarettes; Translations: [Nicotine dependence, cigarettes, uncomplicated] Onset: 06-02-2024 06-02-2024 Chronic Unclassified (2 sources) Patient encounter status 01-29-2024 Unclassified (1 source) Low back pain, unspecified; Translations: [Low back pain, unspecified] Onset: 07-01-2024 Past or Other Problems Problem Classification Problem Date Documented Da te Episodic/Chronic Genitourinary symptoms and ill-defined conditions (13 sources) Dysuria; Translations: [Dysuria] Onset: 01-29-2024 01-29-2024 Episodic Results Test Name Value Interpretation Reference Range Facil ity X-ray reportOrdered By: Анна Reyes on 06-30-[address] [facility] [place] [address] XRay Report Signed Patient: Roxy Yan Jr. MR#: [id number] : 1965 Acct:[id number] Age/Sex: 58 / M ADM Date: 5 Loc: XD Room: Type: [facility] Attending Dr: Mi Shipman APRN Copies to: Mi Shipman APRN~ Ordering Provider: Mi Shipman APRN Date of Service: 06/30/24 XR/XR lumbar spine 6V w bending: M54.16 - Radiculopathy, lumbar region LUMBAR SPINE WITH FLEXION, EXTENSION AND BENDING VIEWS - 6 views: CLINICAL HISTORY: Low back pain and weakness the right lower extremity COMPARISON: None Standing AP neutral, right and left bending and lateral views in neutral, flexion and extension were obtained. There is subtle levoscoliotic curvature. There are no acute compression fractures. There is minimal stairstep retrolisthesis from L1-2 through L4-5. No change in alignment is visualized with flexion or extension. The disc spaces are maintained. There are tiny endplate spurs. There is lower lumbar facet hypertrophy. The SI joints are intact. Mild atherosclerotic plaque is seen at the aorta. XR/XR lumbar spine 6V w bending IMPRESSION: SUBTLE SCOLIOSIS AND MILD DEGENERATIVE CHANGES, DESCRIBED. Impression dictated by: Linda Reyes M.D.06/30/2024 7:33 PM Dictation Location: [place] [address] Transcribed By: [facility] 06/30/241932 Dictated By: Linda Reyes MD 06/30/241929 Signed By: 06/30/241932 [facility] Work Phone: XR lumbar spine 6V w bending on 06-30-2024 XR lumbar spine 6V w bending [facility] [address] [place] [address] [place] [address] XRay Report Signed Patient: Roxy Yan Jr. MR#: [id number] : 1965 Acct:[id number] Age/Sex: 58 / M ADM Date: 06/30/24 Loc: XD Room: Type: [facility] Attending Dr: Mi Shipman APRN Copies to: Mi Shipman APRN Ordering Provider: Mi Shipman APRN Date of Service: 06/30/24 XR/XR lumbar spine 6V w bending: M54.16 - Radiculopathy, lumbar region LUMBAR SPINE WITH FLEXION, EXTENSION AND BENDING VIEWS - 6 views: CLINICAL HISTORY: Low back pain and weakness the right lower extremity COMPARISON: None Standing AP neutral, right and left bending and lateral views in neutral, flexion and extension were obtained. There is subtle levoscoliotic curvature. There are no acute compression fractures. There is minimal stairstep retrolisthesis from L1-2 through L4-5. No change in alignment is visualized with flexion or extension. The disc spaces are maintained. There are tiny endplate spurs. There is lower lumbar facet hypertrophy. The SI joints are intact. Mild atherosclerotic plaque is seen at the aorta. XR/XR lumbar spine 6V w bending IMPRESSION: SUBTLE SCOLIOSIS AND MILD DEGENERATIVE CHANGES, DESCRIBED. Impression dictated by: Linda Reyes M.D.06/30/2024 7:33 PM Dictation Location: [place] [address] Transcribed By: [facility] 06/30/241932 Dictated By: Linda Reyes MD 06/30/241929 Signed By: 06/30/241932 Normal [facility] Provider Letteron 04-14-2024 Provider Letter Provider Letter April 14, 2024 ROXY YAN [facility] [place] [address] : 1965 Dear Roxy Yan, We have been trying to reach you with no success. It is important that you return our call regarding a referral your Primary Care Doctor sent to [facility], upon receiving this letter. Also, at the time of your call, please provide us with your current information. Thank you for your prompt attention to this matter. Sincerely, [facility] [place] [address] Normal [facility] Vital Signs Date Time Vital Sign Value Performing Clinician Patti garcia 07-28-2024 13:04-0400 Body mass index (BMI) [Ratio] 23 kg/m2 Niurka Bruce AIRPORT SCREENER Work Phone: [facility] 07-28-2024 13:04-0400 Body temperature 98.1 [degF] Niurka Bruce AIRPORT SCREENER Work Phone: [facility] 07-28-2024 13:04-0400 Body weight 60.78 kg Niurka Bruce AIRPORT SCREENER Work Phone: [facility] 07-28-2024 13:04-0400 Diastolic blood pressure 98 mm[Hg] Niurka Aichholz AIRPORT SCREENER Work Phone: [facility] 07-28-2024 13:04-0400 Heart rate 68 /min Niurka Bruce AIRPORT SCREENER Work Phone: [facility] 07-28-2024 13:04-0400 Respiratory rate 18 /min Niurka Bruce AIRPORT SCREENER Work Phone: [facility] 07-28-2024 13:04-0400 SaO2% (BldA) [Mass fraction] 98 % Niurka Bruce AIRPORT SCREENER Work Phone: [facility] 07-28-2024 13:04-0400 Systolic blood pressure 152 mm[Hg] Niurka Bruce AIRPORT SCREENER Work Phone: [facility] 06-30-2024 08:46-0400 Body weight 61 kg [facility] 06-30-2024 08:46-0400 Diastolic blood pressure 62 mm[Hg] [facility] 06-30-2024 08:46-0400 Systolic blood pressure 124 mm[Hg] [facility] 01-28-2024 11:18-0500 Body height 162.6 cm Marium Dumont AIRPORT SCREENER Work Phone: [facility] 01-28-2024 11:18-0500 Body mass index (BMI) [Ratio] 21.83 kg/m2 Marium Dumont AIRPORT SCREENER Work Phone: [facility] 01-28-2024 11:18-0500 Body temperature 97.7 [degF] Marium Dumont AIRPORT SCREENER Work Phone: [facility] 01-28-2024 11:18-0500 Body weight 57.7 kg Marium Dumont AIRPORT SCREENER Work Phone: [facility] 01-28-2024 11:18-0500 Diastolic blood pressure 78 mm[Hg] Marium Dumont AIRPORT SCREENER Work Phone: [facility] 01-28-2024 11:18-0500 Heart rate 83 /min Marium Dumont AIRPORT SCREENER Work Phone: [facility] 01-28-2024 11:18-0500 Respiratory rate 16 /min Mraium Ferrellpatrick AIRPORT SCREENER Work Phone: [facility] 01-28-2024 11:18-0500 SaO2% (BldA) [Mass fraction] 97 % Marium Saeztrick AIRPORT SCREENER Work Phone: [facility] 01-28-2024 11:18-0500 Systolic blood pressure 140 mm[Hg] Marium Ferrellpatrick AIRPORT SCREENER Work Phone: [facility] Encounters Encounter Date Encounter Type Care Provider Facility Start: 07-28-2024 End: 07-28-2024 Bamboo flowsheet Niurka Bruce AIRPORT SCREENER Work Phone: [facility] Start: 07-28-2024 End: 07-28-2024 Bamboo flowsheet Niurka Bruce AIRPORT SCREENER Work Phone: [facility] Start: 07-28-2024 End: 07-28-2024 Office outpatient visit 25 minutes Niurka Bruce AIRPORT SCREENER Work Phone: [facility] Comment on above: Primary hypertension (CMS/HCC) (Primary Dx); Pulmonary emphysema, unspecified emphysema type (CMS/HCC); Cigarette nicotine dependence without complication; Mild episode of recurrent major depressive disorder (HCC) (CMS/HCC); Mixed hyperlipidemia (CMS/HCC); Chronic midline low back pain, unspecified whether sciatica present; Degeneration of intervertebral disc of lumbar region with discogenic back pain and lower extremity pain; Retrolisthesis of vertebrae Start: 07-28-2024 End: 07-28-2024 ambulatory NIURKA BRUCE Not Available Start: 07-01-2024 End: 07-01-2024 Emergency department patient visit BERONICA DOHERTY [facility] Start: 06-30-2024 End: 06-30-2024 Patient encounter procedure [facility] Work Phone: Start: 06-30-2024 End: 06-30-2024 Refill Niurka Bruce AIRPORT SCREENER Work Phone: [facility] Comment on above: Primary hypertension (CMS/HCC); Recurrent major depressive disorder, in partial remission (HCC) (CMS/HCC); Anxiety; Heartburn; Other hyperlipidemia; Bulging lumbar disc; Retrolisthesis of vertebrae; Chronic midline low back pain, unspecified whether sciatica present Start: 06-24-2024 End: 06-24-2024 Refill Niurka Bruce AIRPORT SCREENER Work Phone: [facility] Start: 06-22-2024 End: 06-22-2024 Orders Only Niurka rBuce AIRPORT SCREENER Work Phone: [facility] Comment on above: Bulging lumbar disc (Primary Dx); Retrolisthesis of vertebrae; Chronic midline low back pain, unspecified whether sciatica present Start: 06-15-2024 End: 06-15-2024 ambulatory Vinod Gray MD Facility: [facility] Start: 06-02-2024 End: 06-02-2024 ambulatory NIURKA BRUCE Not Available Start: 02-19-2024 End: 02-19-2024 Refill Crissy Slaughter MA [facility] Comment on above: Anxiety (Primary Dx) Start: 02-18-2024 End: 02-18-2024 Refill Crissy Slaughter MA [facility] Comment on above: Recurrent major depr essive disorder, in partial remission (HCC) (CMS/HCC) (Primary Dx); Retrolisthesis of vertebrae; Bulging lumbar disc; Anxiety; Other hyperlipidemia (CMS/HCC); Primary hypertension (CMS/HCC); Heartburn Start: 01-30-2024 ambulatory Facility:[facility] Start: 01-28-2024 End: 01-28-2024 Bamboo flowsheet Marium Dumont AIRPORT SCREENER Work Phone: [facility] Start: 01-28-2024 End: 01-28-2024 Bamboo flowsheet Marium Dumont AIRPORT SCREENER Work Phone: [facility] Start: 01-28-2024 End: 01-28-2024 Initial preventive medicine new patient 40-64yrs Marium Dumont AIRPORT SCREENER Work Phone: [facility] Comment on above: Wellness examination (Primary Dx); Screening for malignant neoplasm of colon; Retrolisthesis of vertebrae; Bulging lumbar disc; Dysuria Start: 01-28-2024 End: 01-28-2024 Patient encounter status Marium Dumont AIRPORT SCREENER Work Phone: [facility] Start: 01-28-2024 End: 01-28-2024 ambulatory MARIUM DUMONT Not Available Procedures Date Procedure Procedure Detail Performing Clinician Start: 06-30-2024 X-ray of lumbar spin e, six views including bending views Niurka Bruce Work Phone: Start: 03-11-2018 Colonoscopy Niurka acosta AIRPORT SCREENER Work Phone: Plan of Treatment Date Care Activity Detail Author Start: 03-11-2028 Screening for malign ant neoplasm of colon [facility] Start: 01-27-2025 Medicare Annual Well ness (AWV) Medicare Annual Wellness (AWV) [facility] Start: 09-08-2024 End: 09-08-2024 Patient encounter procedure 09/08/2024 9:20 AM EDT Office Visit [facility] [address] [place] [address] Niurka Bruce NP [address] [place] [id number] [facility] Start: 07-28-2024 End: 07-28-2024 Patient encounter procedure 07/28/2024 1:00 PM EDT Office Visit [facility] [address] [place] [id number] Niurka Bruce NP [address] [place] [id number] [facility] Start: 06-30-2024 Patient referral [facility] Work Phone: Start: 02-25-2024 End: 02-25-2024 Patient encounter procedure 02/25/2024 10:30 AM EST Office Visit [facility] [address] [place] [address] Marium Dumont NP [address] [place] [address] [facility] Start: 01-28-2024 End: 01-27-2025 CBC W Auto Differential panel - Blood CBC and differential Lab Routine Wellness examination Expected: 01/28/2024 (Approximate), Expires: 01/27/2025 [facility] Comment on above: Expected: 01/28/2024 (Approximate), Expires: 01/27/2025 Start: 01-28-2024 End: 01-27-2025 Comprehensive metabolic 2000 panel - Serum or Plasma Comprehensive metabolic panel Lab Routine Wellness examination Expected: 01/28/2024 (Approximate), Expires: 01/27/2025 [facility] Comment on above: Expected: 01/28/2024 (Approximate), Expires: 01/27/2025 Start: 01-28-2024 End: 01-27-2025 Hemoglobin A1c/Hemoglobin.total in Blood Hemoglobin A1c Lab Routine Wellness examination Expected: 01/28/2024 (Approximate), Expires: 01/27/2025 [facility] Comment on above: Expected: 01/28/2024 (Approximate), Expires: 01/27/2025 Start: 01-28-2024 End: 01-27-2025 Lipid 1996 panel - Serum or Plasma Lipid panel Lab Routine Wellness examination Expected: 01/28/2024 (Approximate), Expires: 01/27/2025 [facility] Comment on above: Expected: 01/28/2024 (Approximate), Expires: 01/27/2025 Start: 01-28-2024 End: 01-27-2025 TSH W/REFLEX TO FT4 TSH W/REFLEX TO FT4 Lab Routine Wellness examination Expected: 01/28/2024 (Approximate), Expires: 01/27/2025 [facility] Work Phone: Comment on above: Expected: 01/28/2024 (Approximate), Expires: 01/27/2025 Start: 01-28-2024 End: 01-28-2024 Patient encounter procedure 01/28/2024 11:30 AM EST [facility] [address] [facility] [place] [address] Marium Dumont NP [address] [facility] [place] [address] Arrived [facility] Comment on above: Arrived Start: 11-10-2023 Influenza vaccination Influenza Vacc ine (#1) [facility] Start: 1965 Screening for malign ant neoplasm of colon [facility] Patient referral [facility] Work Phone: Payers Date Payer Category Payer Private Health Insurance [id number] 2024 Self-pay 2024 Medicare 2023 Private Health Insurance [facility] [id number] 2023 Medicare (Managed Care) [id number] 2023 Medicare [id number] 1965 Unknown [id number] 1965 Unknown [id number] 1965 Unknown [id number] 1965 Unknown [id number] 1965 Unknown [id number] Unknown [id number] Social History Date Type Detail Facility Tobacco smoking stat [facility] Tobacco smoking consumption unknown [facility] Start: 01-20-2024 End: 07-28-2024 History of Social function [facility] Start: 01-20-2024 End: 07-28-2024 [id number] Health Literacy [facility] How often do you nee d to have someone help you when you read instructions, pamphlets, or other written material from your doctor or pharmacy [SILS] Never [facility] Do you belong to any clubs or organizations such as druze groups, unions, fraternal or athletic groups, or [...] [OSQ] Very much [facility] (I/We) worried wheth er (my/our) food would run out before (I/we) got money to buy more. Sometimes true [facility] In the past 12 month s, was there a time when you were not able to pay the mortgage or rent on time? Yes [facility] Start: 1965 Sex assigned at Not on file [facility] Start: 01-28-2024 Tobacco smoking status NHIS Smokes tobacco daily [facility] History of tobacco use Cigarette Smoker [facility] Start: 01-28-2024 Tobacco use and exposure Smokeless tobacco non-user [facility] Start: 01-28-2024 End: 07-28-2024 Alcoholic beverage intake Current drinker of alcohol (finding) [facility] Start: 01-28-2024 Tobacco Comment Started smoking when i was 17 [facility] How often do you nee d to have someone help you when you read instructions, pamphlets, or other written material from your doctor or pharmacy [SILS] Never [facility] Start: 05-26-2024 Gender identity Identifies as male gender (finding) [facility] Start: 06-30-2024 End: 07-01-2024 Sex Male (finding) [facility] Start: 1965 Sex Assigned At Male [facility] Clinical Notes 01-28-2024 to 07-28-2024 Niurka Bruce NP - 07/28/2024 1:29 PM Estefanía Bruce NP - 07/28/2024 1:28 PM Estefanía Bruce NP - 07/28/2024 1:00 PM Estefanía Bruce NP - 07/28/2024 6:30 AM EDTPatient Instructions Note Date & Type Note Facility 07-28-2024 History of Presen t illness Narrative Associated Problem(s): DDD (degenerative disc disease), lumbar Under care of pain mgmt Saw neurosurgery no surgery Would like second opinion Cont with pain mgmt until seen by neurosurgeon Associated Problem(s): Retrolisthesis of vertebrae MRI report 09/17/23 Images from the original note were not included. Roxy Yan Jr. is a 58 y.o. male presents with chief complaint of Follow-up HPI: Had injection yesterday with pain mgmt, no benefit so far Pain daily /, poor quality of life d/t this Hypertension This is a chronic problem. The current episode started more than 1 year ago. The problem is unchanged. The problem is uncontrolled. Pertinent negatives include no chest pain, palpitations, peripheral edema or shortness of breath. There are no [...] father; Arthritis in his mother and sister; Depression in his mother; Early natural in his father; Hypertension in his mother. OBJECTIVE: Visit Vitals BP (!) 152/98 (BP Location: Left arm, Patient Position: Sitting, BP Cuff Size: Adult long) Pulse 68 Temp 98.1 F (Temporal) Resp 18 Wt 134 lb SpO2 98% BMI 23.00 kg/m Smoking Status Every Day BSA 1.66 m Physical Exam Vitals and nursing note reviewed. [...] of the risks of continued smoking: stroke, ID, all forms of cancer, lung disease, and . Options for quitting smoking include: cold turkey, hypnosis, acupuncture, nicotine replacement meds (gum, lozenges, and patches), Buproprion, and Varenicline. At this time pt is encouraged to evaluate their goals for wanting to quit smoking, and reach out to provider when ready to start this process Chronic midline low back pain Relevant Orders Ambulatory referral to Orthopaedic Surgery DDD (degenerative disc disease), lumbar Under care of pain mgmt Saw neurosurgery no surgery Would like second opinion Cont with pain mgmt until seen by neurosurgeon Relevant Orders Ambulatory referral to Orthopaedic Surgery Associated Problem(s): Mixed hyperlipidemia (CMS/HCC) On statin therapy Check labs yearly and prn dose changes Associated Problem(s): Depression (CMS/HCC) Current meds: trazodone, saumyalify, depakote Associated Problem(s): Cigarette nicotine dependence without complication The patient has been advised of the risks of continued smoking: stroke, ID, all forms of cancer, lung disease, and . Options for quitting smoking include: cold turkey, hypnosis, acupuncture, nicotine replacement meds (gum, lozenges, and patches), Buproprion, and Varenicline. At this time pt is encouraged to evaluate their goals for wanting to quit smoking, and reach out to provider when ready to start this process Associated Problem(s): Hypertension (CMS/HCC) Please check blood pressure daily and record DASH diet Limit caffeine Take medication as directed Contact office if chest pain, pressure, dizziness, shortness of breath, swelling legs Recommend slow position changes Current meds: amlodipine, lisinopril Increase dose on lisinopril to 20mg daily Associated Problem(s): Emphysema, unspecified No inhalers +dyspnea no wheezing documented in this encounter [facility] 07-28-2024 Instructions Niurka Bruce NP - 07/28/2024 1:00 PM EDT Stop lisinopril 10mg, new dose is 20mg daily Referral to Dr Joni Thompson [place], [place] documented in this encounter [facility] 06-30-2024 Evaluation note Diagnosis Onset Date Resolution Left lumbar radiculopathy acute June 30, 2024 8:43am Right leg weakness acute June 30, 2024 8:43am [facility] Work Phone: [phone] 116-511512-11-2024 Miscellaneous Notes* Telephone Encounter - Crissy Slaughter MA - 02/19/2024 10:00 AM EST He is taking it for depression. [id number] Telephone encounter Note* Telephone Encounter - Crissy Slaughter MA - 02/19/2024 10:00 AM EST He is taking it for depression. [id number] Telephone encounter Note* Telephone Encounter - Crissy Slaughter MA - 02/18/2024 11:56 AM EST 01/28/2024 02/25/2024 [id number] Miscellaneous Notes* Telephone Encounter - Crissy Slaughter MA - 02/18/2024 11:56 AM EST 01/28/2024 02/25/2024 documented in [facility]Children[facility] [id number] History of Present illness Narrative* Marium Dumont NP - 01/29/2024 5:34 PM ESTAssociated Problem(s): Wellness examination I have reviewed Ht/Wt/BMI, I have reviewed recommended vaccines for patient's age, as well as all recommended screenings I have reviewed available care everywhere notes as well. I have recommended eating a balanced diet,as well as activity as chronic conditions allow It is recommended that the patient have a yearly eye exam, as well as twice a year dental exams Fu in this office for wellness on a yearly basis Diet: Eat three meals per day. Breakfast, lunch, and dinner. Avoid snacking. Avoid eating after 5/6pm. Daily protein GOAL 35% of your intake; [...] GOAL 6-8 hours of sleep per night. * Marium Dumont NP - 01/29/2024 5:34 PM ESTAssociated Problem(s): Dysuria Difficulty with urination, difficulty with urinary flow X1 month Denies blood in urine Admits foul odor. UA in office negative. Refer urology * Marium Dumont NP - 01/29/2024 5:34 PM ESTAssociated Problem(s): Bulging lumbar disc Has MRI report from [place], has retrolithesis on L5 Dessication at L2-L3 Mild disc buldge @ L4-L5 Was referred to neurosurgeon in [place], but moved prior to appointment. Would like referral to neurosurgeon here. Pt has RX from provider in [place] for hydrocodone-acetaminophen 5-325mg one tablet PO Q12H PRN severe Pain. RX was unable to be filled in [place]. Will fill for ONE month only. Referral sent to neurosurgery. * Marium Dumont NP - 01/28/2024 11:30 AM EST Images from the original note were not included. Subjective Patient ID: Roxy Yan Jr. is a 58 y.o. male who presents for Establish Care. Back Pain This is a chronic problem. The current episode started more than 1 year ago. The problem occurs constantly. The problem has been rapidly worsening since onset. The pain is present in the gluteal. Thequality of the pain is described as aching, burning, cramping, shooting and stabbing. The pain radiates to the left foot, left knee, left thigh, right foot, right knee and right thigh. The pain is sohail severity of 10/10. The pain is The same all the time. The symptoms are aggravated by bending, coughing, position, lying down, sitting, standing and twisting. Stiffness is present All day. Associated symptoms include dysuria, leg pain, numbness, paresis, paresthesias and tingling. Pertinent negatives include no abdominal pain, chest pain, fever, headaches or weakness. Risk factors include recenttrauma. Here today to establish care, moved here from [place]. Does not know dosing of any ,medications. Advised pt to call office with medication dosage and instructions so they can be entered correctly. Wellness labs done in November 2023 in [place]. Was seeing Clinical Operations Manager in [place] as well- will request records Has MRI report from [place], has retrolithesis on L5 Dessication at L2-L3 Mild disc buldge @ L4-L5 Was referred to neurosurgeon in [place], but moved prior to appointment. Would like referral to neurosurgeon here. Pt has RX from provider in [place] for hydrocodone-acetaminophen 5-325mg one tablet PO Q12H PRN severe Pain. RX was unable to be filled in [place]. Will fill for ONE month only. Referral sent to neurosurgery. Difficulty with urination, difficulty with urinary flow X1 month Denies blood in urine Admits foul odor. UA in office negative. Refer urology Current 2 ppd smoker since age 17. [facility] Reports he has a 20 pound [...] Negative for arthralgias, gait problem, joint swelling andmyalgias. Skin: Negative for rash. Neurological: Positive for [...] well. I have recommended eating a balanced diet,as well as activity as chronic conditions allow It is recommended that the patient have a yearly eye exam, as well as twice a year dental exams Fu in this office for wellness on a yearly basis Diet: Eat three meals per day. Breakfast, lunch, and dinner. Avoid snacking. Avoid eating after 5/6pm. Daily protein GOAL 35% of your intake; [...] differential Retrolisthesis of vertebrae Relevant Medications HYDROcodone-acetaminophen (Rumsey) 5-325 MG tablet Other Relevant Orders Ambulatory referral to Neurosurgery Bulging lumbar disc Has MRI report from [place], has retrolithesis on L5 Dessication at L2-L3 Mild disc buldge @ L4-L5 Was referred to neurosurgeon in [place], but moved prior to appointment. Would like referral to neurosurgeon here. Pt has RX from provider in [place] for hydrocodone-acetaminophen 5-325mg one tablet PO Q12H PRN severe Pain. RX was unable to be filled in [place]. Will fill for ONE month only. Referral sent to neurosurgery. Relevant Medications HYDROcodone-acetaminophen (Rumsey) 5-325 MG tablet Other Relevant Orders Ambulatory referral to Neurosurgery Dysuria Difficulty with urination, difficulty with urinary flow X1 month Denies blood in urine Admits foul odor. UA in office negative. Refer urology Relevant Orders Ambulatory referral to Urology documented in this [facility]11-19-2024 Instructions* Patient Instructions* Marium Dumont NP - 01/28/2024 11:30 AM EST FASTING labs ordered. Nothing to eat or drink for 12 hours prior to blood draw. Water and black coffee ok. Referral sent to Dr. Gil Neurosurgery they will call you. If you don't hear from them in 2 weeks, call my office! Please call office with current medications, dosing, and frequency. [facility] Diagnosis Wellness examination- Primary Screening for malignant neoplasm of colon Retrolisthesis of vertebrae Bulging lumbar disc Dysuria [facility]* Diagnosis Wellness examination- Primary Screening for malignant neoplasm of colon Retrolisthesis of vertebrae Bulging lumbar disc Dysuria Recurrent major depressive disorder, in partial remission (HCC) (CMS/HCC)- Primary Retrolisthesis of vertebrae Bulging lumbar disc Anxiety Anxiety state, unspecified Other hyperlipidemia (CMS/HCC) Primary hypertension (CMS/HCC) Unspecified essential hypertension Heartburn [facility]* Diagnosis Wellness examination- Primary Screening for malignant neoplasm of colon Retrolisthesis of vertebrae Bulging lumbar disc Dysuria Anxiety- Primary Anxiety state, unspecified [facility]* Diagnosis Wellness examination- Primary Screening for malignant neoplasm of colon Retrolisthesis of vertebrae Bulging lumbar disc Dysuria Bulging lumbar disc- Primary Emphysema, unspecified GBS (Guillain Roll syndrome) (CMS/HCC) Acute infective polyneuritis Primary hypertension (CMS/HCC) Unspecified essential hypertension Anxiety Anxiety state, unspecified Mild episode of recurrent major depressive disorder (HCC) (CMS/HCC) Mixed hyperlipidemia (CMS/HCC) Mixed hyperlipidemia Cigarette nicotine dependence without complication Prostate cancer screening Special screening for malignant neoplasm of prostate Retrolisthesis of vertebrae Chronic midline low back pain, unspecified whether sciatica present Recurrent major depressive disorder, in partial remission (HCC) ([facility]/HCC) Other hyperlipidemia Bulging lumbar disc- Primary Retrolisthesis of vertebrae Chronic midline low back pain, unspecified whether sciatica present [facility]* Diagnosis Wellness examination- Primary Screening for malignant neoplasm of colon Retrolisthesis of vertebrae Bulging lumbar disc Dysuria Bulging lumbar disc- Primary Emphysema, unspecified GBS (Guillain Roll syndrome) (CMS/HCC) Acute infective polyneuritis Primary hypertension (CMS/HCC) Unspecified essential hypertension Anxiety Anxiety state, unspecified Mild episode of recurrent major depressive disorder (HCC) ([facility]/HCC) Mixed hyperlipidemia (CMS/HCC) Mixed hyperlipidemia Cigarette nicotine dependence without complication Prostate cancer screening Special screening for malignant neoplasm of prostate Retrolisthesis of vertebrae Chronic midline low back pain, unspecified whether sciatica present Recurrent major depressive disorder, in partial remission (HCC) (CMS/HCC) Other hyperlipidemia Primary hypertension (CMS/HCC) Unspecified essential hypertension Recurrent major depressive disorder, in partial remission (HCC) ([facility]/HCC) Anxiety Anxiety state, unspecified Heartburn Other hyperlipidemia Bulging lumbar disc Retrolisthesis of vertebrae Chronic midline low back pain, unspecified whether sciatica present documented in this encounter [facility] HealthcareEvaluation noteNo assessment information availableSelect Medical [facility] Work Phone: Evaluation note* Diagnosis Wellness examination- Primary Screening for malignant neoplasm of colon Retrolisthesis of vertebrae Bulging lumbar disc Dysuria Bulging lumbar disc- Primary Emphysema, unspecified GBS (Guillain Roll syndrome) ([facility]/HCC) Acute infective polyneuritis Primary hypertension (CMS/HCC) Unspecified essential hypertension Anxiety Anxiety state, unspecified Mild episode of recurrent major depressive disorder (HCC) ([facility]/HCC) Mixed hyperlipidemia ([facility]/HCC) Mixed hyperlipidemia Cigarette nicotine dependence without complication Prostate cancer screening Special screening for malignant neoplasm of prostate Retrolisthesis of vertebrae Chronic midline low back pain, unspecified whether sciatica present Recurrent major depressive disorder, in partial remission (HCC) ([facility]/HCC) Other hyperlipidemia Primary hypertension ([facility]/HCC)- Primary Unspecified essential hypertension Pulmonary emphysema, unspecified emphysema type ([facility]/HCC) Cigarette nicotine dependence without complication Mild episode of recurrent major depressive disorder (HCC) ([facility]/HCC) Mixed hyperlipidemia ([facility]/HCC) Mixed hyperlipidemia Chronic midline low back pain, unspecified whether sciatica present Degeneration of intervertebral disc of lumbar region with discogenic back pain and lower extremity pain Retrolisthesis of vertebrae documented in this encounter [facility] HealthcareHospital Discharge instructionsAmbulatory Orders* Referral to PT / OT / Speech (PT/OT/SP) Location: None [facility] Work Phone: Summary Purpose Family History No Family History Records FoundNo Family History Records FoundNo Family History Records FoundNo Family History Records FoundNo Family History Records Found Advance Directives No Advanced Directives Records Found Advance Directive Response Recorded Date/ Time Advance Directives No June 17 10:22am Chief Complaint and Reason for Visit Chief Complaint Admit Date low back pain June 30, 2024 8:4 3am Chief Complaint Admit Date low back pain June 30, 2024 8:4 3am M54.16 R29.898 June 30, 2024 9:4 2am Reason for Visit Admit Date Left lumbar radiculopathy June 30 8:43am Right leg weakness June 30, 2024 8:4 3am Additional Source Comments Care Teams (unrecognized sec tion and content) [employer] Relationship Specialty Start Date End Date Joao Law MD [address] [place] [phone] PCP - General Family Medicine 01/09/24 Niurka Bruce NP [address] [place] [phone] PCP - [facility] 12/10/23 01/09/88 Marium Dumont NP [address] [place] [phone] Nurse Practitioner Family Medicine 12/11/23 [employer] Relationship Specialty Start Date End Date Joao Law MD [address] [place] [phone] PCP - General Family Medicine 01/09/24 Niurka Bruce NP [address] [place] [phone] PCP - [facility] 12/10/23 01/09/88 Marium Dumont NP [address] [place] [phone] Nurse Practitioner Family Medicine 12/11/23 [employer] Relationship Specialty Start Date End Date Joao Law MD [address] [place] [phone] PCP - General Family Medicine 01/09/24 Niurka Bruce NP [address] [place] [phone] PCP - [facility] 12/10/23 01/09/88 Marium Dumont NP [address] [place] [phone] Nurse Practitioner Family Medicine 12/11/23 [employer] Relationship Specialty Start Date End Date Joao Law MD [address] [place] [phone] PCP - General Family Medicine 01/09/24 Niurka Bruce NP [address] [place] [phone] [facility] 12/10/23 01/09/88 Marium Dumont NP [address] [place] [phone] Nurse Practitioner Family Medicine 12/11/23 [employer] Relationship Specialty Start Date End Date Joao Law MD [address] [place] [phone] PCP - General Family Medicine 01/09/24 Niurka Bruce NP [address] [place] [phone] [facility] 12/10/23 01/09/88 Marium Dumont NP Nurse Practitioner Family Medicine 12/11/23 [employer] Relationship Specialty Start Date End Date Joao Law MD [address] [place] [phone] PCP - General [facility] 01/09/24 Niurka Bruce NP [address] [place] [phone] PCP - [facility] 12/10/23 01/09/88 Marium Dumont NP Nurse Practitioner Family Medicine 12/11/23 [employer] Relationship Specialty Start Date End Date Joao Law MD [address] [place] [phone] PCP - [facility] 01/09/24 Niurka Bruce NP [address] [place] [phone] PCP [facility] 12/10/23 01/09/88 Marium Dumont NP Nurse Practitioner Family Medicine 12/11/23 Team Status: Active Member Role Status Dates Niurka Bruce Primary Care Provider Active Team Status: Inactive Member Role Status Dates Mi Shipman APRN Attending Provider Active Start: June 30, 2024 End: June 30, 2024 Niurka Bruce Primary Care Provider Active Sta rt: June 30, 2024 End: June 30, 2024 Team Status: Inactive Member Role Status Dates Niurka Bruce Primary Care Provider Active Sta rt: June 30, 2024 End: June 30, 2024 Mi Shipman APRN Attending Provider Active Start: June 30, 2024 End: June 30, 2024 [employer] Relationship Specialty Start Date End Date Joao Law MD [address] [place] [phone] PCP - General Family [facility] 01/09/24 Niurka Bruce NP [address] [place] [phone] [facility] 12/10/23 01/09/88 Marium Dumont NP Nurse Practitioner [facility] 12/11/23 [employer] Relationship Specialty Start Date End Date Joao Law MD [address] [place] [phone] PCP - [facility] Family [facility] 01/09/24 Niurka Bruce NP [address] [place] [phone] [facility] 12/10/23 01/09/88 Marium Dumont NP Nurse Practitioner Family Medicine 12/11/23 Reason for Visit (unrecogniz ed section and content) Reason Comments Establish Care Reason Onset Date Comments Med Refill 02/18/2024 Reason Onset Date Comments Med Refill 02/19/2024 Reason Comments Follow-up (unrecognized sect ion and content) No Status Records FoundNo Status Records FoundNo Status Records FoundNo Status Records FoundNo Status Records Found INFORMATION SOURCE (unrecogn ized section and content) DATE CREATED AUTHOR [facility]/16/2024 [facility] DATE CREATED AUTHOR AUTHOR'S ORGANIZ ATION 06/19/2024 [facility] DATE CREATED AUTHOR AUTHOR'S ORGANIZ ATION 07/02/2024 [facility] DATE CREATED AUTHOR AUTHOR'S ORGANIZ ATION 07/02/2024 [facility] DATE CREATED AUTHOR AUTHOR'S ORGANIZ ATION 07/29/2024 [facility] EPIC Goals (unrecognized section and content) Goals may be documented in a n alternate sectionGoals may be documented in an alternate section FOR RECORDS PERTAINING TO PATIENTS WHO ARE [...] BE BASED ON THE PRIMARY CLINICAL RECORDS. [employer] provides no warranty or guarantee of the accuracy or completeness of information in this document.
--- NOTE | 2024-08-06 10:32 | P.CN_ITS ---
Consult Note: HPI Data of Consult Patient: known to practice within the last 3 years Requesting Physician: Tonja Jacobo NP Primary Care Provider: Niurka Bruce NP Consult Narrative Reason for consult: f/u Narrative: 58yom who presents for evaluation. longstanding history of low back pain with radiation into left lower extremity. also has history of guillain barre. lumbar imaging reviewed, significant for disc herniation with resultant stenosis at l4- 5, l5-s1. has engaged in a series of provider directed home exercises >6 weeks, without benefit. uses norco, which helps some. was on gabapentin 300mg TID with diarrhea, mild pain relief. pain today 9/10 increasing to 10/10 with all activity, standing, lifting, twisting, bending. recently underwent left L4/5 L5/S1 TFESI with significant improvement while anesthetized, no improvement ongoing. cc:: CC: Tonja Jacobo NP Review of Systems ROS Musculoskeletal Reports: back pain and extremity pain [facility] Medical History (Updated 08/06/24 @ 10:35 by Tonja Jacobo NP) Upper back pain ?M54.9 - Dorsalgia, unspecified (ICD-10) Neck pain ?M54.2 - Cervicalgia (ICD-10) Osteoarthritis ?M19.90 - Unspecified osteoarthritis, unspecified site (ICD-10) Heartburn ?R12 - Heartburn (ICD-10) Smoker ?F17.200 - Nicotine dependence, unspecified, uncomplicated (ICD-10) Irregular heartbeat ?I49.9 - Cardiac arrhythmia, unspecified (ICD-10) Angina at rest ?I20.89 - Other forms of angina pectoris (ICD-10) Heart attack ?I21.9 - Acute myocardial infarction, unspecified (ICD-10) 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 - Guillain-[place] syndrome (ICD-10) Chronic back pain ?M54.9 - Dorsalgia, unspecified (ICD-10) ?G89.29 - Other chronic pain (ICD-10) Surgical History H/O umbilical hernia repair ?Z98.890 - Other specified postprocedural states (ICD-10) ?Z87.19 - Personal history of other diseases of the digestive system (ICD-10) Social History Little interest or pleasure in doing things: not at all Feeling down, depressed, or hopeless: not at all Meds Home Medications and Allergies Home Medications ?Medication ?Instructions ?Recorded ?Confirmed ?Type tizanidine 2 mg capsule 2 mg PO Q8H PRN muscle spast icity 05/20/24 07/27/24 Rx #14 caps aripiprazole 20 mg tablet 20 mg PO DAILY 06/15/2407/09 History divalproex 500 mg tablet,extended 500 mg PO DAILY 10/0207/27/24 History release 24 hr folic acid 1 mg tablet 1 mg PO DAILY 06/15/2407/27 History gabapentin 300 mg capsule 300 mg PO TID #90 caps 06/1507/27/24 Rx lisinopril 10 mg tablet 10 mg PO DAILY 06/15/2407/09 History rosuvastatin 10 mg tablet 10 mg PO .HS 06/15/24 History trazodone 100 mg tablet See Rx Instructions PO DAILY PRN 06/15/24 07/27/24 History sleep Allergies Allergy/AdvReac Type Severity Reaction Status Date / Time No Known Drug Allergies Allergy Verified 07/27/24 08:57 Exam Constitutional Documenting provider has reviewed patient's vital signs: yes Common normals: no apparent distress, oriented x3, healthy appearing, alert and well nourished General appearance: cooperative HENOR Common normals: normocephalic, hearing grossly normal bilaterally and moist oral mucous membranes Head and scalp: normocephalic Eye Common normals: PERRL Pupil: PERRL Neck & C-Spine Common normals: full ROM General: normal visual inspection Chest Common normals: inspection of chest normal Respiratory Common normals: normal respiratory effort, no retractions and no use of accessory muscles Back & Pelvis Lumbar spine/lower back: ROM limited, pain with ROM and lumbar spinal tenderness Sacroiliac joints: SI joint(s) abnormal Other: significant hyperalgesia and sensitivity difficult to assess dermatomal presentation due to hx of GBS, does have positive SLR on left>right left sij positive yolis(patricks), gaenslens, thigh thrust, compression test strength 3/5 in RLE 4/5 in LLE, again hx of GBS Neuro Common normals: oriented x3 Sensorium/orientation: alert Gait (neuro): assistive device used cane Psych Common normals: mental status grossly normal, thought process normal, cooperative, affect normal, speech normal and activity/motor behavior normal Speech: normal speech Thought process: normal thought process Results Additional Findings Additional findings: If on a controlled substance or opioids, I have checked an [place] report on this patient and there are no aberrancies noted in the prescribing history.??If on a controlled substance or opioid a drug screen was completed and reviewed within the last year, and if there has not been a drug screen completed we ordered one today to monitor higher risk, state monitored pain medication use. As part of providing excellent, safe, comprehensive care, the following was completed at our patient's visit: 1. A medication reconciliation and review to ensure accurate knowledge of current/active medications, including asking our patients to inform us about any [id number] medications or herbal remedies/nutritional supplements/alternative remedies. 2. A review to specifically ensure our patients have had annual screening for screening for depression, screening for tobacco use, and screening for unhealthy alcohol use. For concerning screenings had a discussion with the patient, provided patient education, and recommended follow-up with primary care provider when appropriate. If patient noted with a risk of falling, they received education on strength, gait, and balance training to prevent future risk of falling. Portions of this note may have been carried over from the previous visit and updated as appropriate. Please note this office utilizes paper charting in addition to the electronic medical record. A list of current medications, vitals, and PMH is available there as the clinical staff outside of myself do not have access to [employer] charting during the clinic day operations. As part of providing quality comprehensive care the current medications, vitals, and PMH were reviewed in the paper chart. Assessment and Plan Assessment and Plan (1) Lumbar stenosis with neurogenic claudication: (2) Lumbar radiculopathy: Assessment and Plan: left L4/5 L5/s1 tfesi >50% improvement while anesthetized, no ongoing relief (3) Sacroiliitis: Assessment and Plan: The patient has had over 3 months of moderate to severe low back and LLE pain with functional impairment and inadequate response to conservative care including NSAIDS (unless there are contraindication such as concurrent blood thinners), multiple oral or topical pain medications, and home exercise program/physical therapy.? Patient has completed >6 weeks of guided home exercise program and/or formal physical therapy program without relief of their symptoms.? I have reviewed the imaging of the lumbar spine and no red flags were identified.? The Oswestry Disability Index was completed, and the patient scored a 62%.? The patient noted the following:?? severe pain impacting ADLs, sitting, standing, walking, sleeping, social life, travel We discussed the risks and benefits of the procedure with the patient, and we are NOT planning on using sedation as outlined in the guidelines from Medicare unless there is a documented reason that sedation would be strongly recommended.?? ?The procedure will be completed with fluoroscopic guidance.? Plan refer to [facility] for evaluation/consultation proceed with left sij injection under fluoroscopy dc gabapentin, start pregabalin 75mg TID update UDS today, reports last marijauna use 06/15/24 continue tizanidine 4mg TID PRN pain/spasms can continue NSAIDs PRN caution chronic opioid use, concerning uncontrolled pain, changing pharmacies, previous THC use f/u 2 weeks after left sij injection
== END 2024-08-06 09:59 | disposition home or self-care (01) ==
PROVIDERS: PCP Nurse Practitioner; Visit Provider Nurse Practitioner
DX: M48.062 Spinal stenosis, lumbar region with neurogenic claudication (principal); M54.16 Radiculopathy, lumbar region; M46.1 Sacroiliitis, not elsewhere classified
CPT/HCPCS: G0463